=== PATIENT | male | born 1980 | race Caucasian/White ===

== ENCOUNTER 2018-09-23 21:18 | Inpatient (IN) | payer OTHER ==
[2018-09-23] MEDS ORDERED: Sodium Chloride 0.9% 1,000 ML IV ONE ×2 (22:07→22:56)
--- NOTE | 2018-09-23 22:15 | C.PDOC ---
History Of Present Illness 38 year old male presents to ED with complaint dry mouth for the past couple of months and abdominal pain with associated nausea and vomiting for the past 3 days. He states that he was started on Risperdal by his psychiatrist a couple of months ago and since then has been experiencing dry mouth. He states that he has been drinking a lot of fluids. Mother states that he has lost weight as well. He denies fever, constipation, diarrhea, hematuria, dysuria, or urinary frequency. Time Seen by Provider: 09/23/18 21:59 Chief Complaint (Nursing): Abdominal Pain History Per: Patient, Family (mother) History/Exam Limitations: no limitations Onset/Duration Of Symptoms: Days (3) Current Symptoms Are (Timing): Still Present Context: Other (new medication) Location Of Pain/Discomfort: LLQ Radiation Of Pain To:: None Quality Of Discomfort: "Pain" Associated Symptoms: Nausea, Vomiting. denies: Fever, Chills, Diarrhea, Constipation, Urinary Symptoms Exacerbating Factors: None Alleviating Factors: None Recent travel outside of the [place]: No Additional History Per: Family Past Medical History Reviewed: Historical Data, Nursing Documentation, Vital Signs Vital Signs: Last Vital Signs Temp 98.7 F 09/23/18 21:25 Pulse 108 H 09/23/18 21:25 Resp 16 09/23/18 21:25 BP 147/83 09/23/18 21:25 Pulse Ox 98 09/23/18 21:25 Primary Care Provider: Non [facility] Provider, - Medical History PMH: Anxiety, Bipolar Disorder Surgical History: Tonsillectomy (childhood age) Family History: States: Unknown Family Hx - Social History Hx Tobacco Use: Yes Hx Alcohol Use: No Hx Substance Use: No - Immunization History Hx Tetanus Toxoid Vaccination: No Hx Influenza Vaccination: No Hx Pneumococcal Vaccination: No Review Of Systems Constitutional: Positive for: Weight loss. Negative for: Fever, Chills, Weakness ENT: Positive for: Other (dry mouth). Negative for: Throat Pain Cardiovascular: Negative for: Chest Pain Respiratory: Negative for: Cough, Shortness of Breath Gastrointestinal: Positive for: Nausea, Vomiting, Abdominal Pain. Negative for: Diarrhea, Constipation Genitourinary: Negative for: Dysuria, Frequency, Hematuria Musculoskeletal: Negative for: Back Pain Neurological: Negative for: Weakness, Numbness Physical Exam - Physical Exam Appears: Non-toxic, No Acute Distress Skin: Normal Color, Warm, Dry Head: Atraumatic, Normacephalic Neck: Normal ROM, Supple Chest: Symmetrical, No Deformity Cardiovascular: Rhythm Regular, No Murmur Respiratory: No Rales, No Rhonchi, No Wheezing Gastrointestinal/Abdominal: Bowel Sounds (normoactive), Soft, Tenderness (to the left lower quadrant), No Mass, No Guarding, No Rebound, No Other (rigidity) Extremity: Capillary Refill <2 Sec Extremity: Bilateral: Atraumatic, Normal Color And Temperature, Normal ROM Pulses: Left Dorsalis Pedis: Normal, Right Dorsalis Pedis: Normal Neurological/Psych: Oriented x3, Normal Speech, Normal Cognition ED Course And Treatment - Laboratory Results Result Diagrams: 09/23/18 22:24 09/23/18 22:24 Lab Interpretation: Abnormal (Glucose 616, Na 127, K+ 5.5, HCO3 12, UA + ketones) O2 Sat by Pulse Oximetry: 98 (in RA) Pulse Ox Interpretation: Normal Progress Note: Patient treated with IV fluids and IV Insulin - Physician Consult Information Time Consulting Physician Contacted: 23:13 Physician Contacted: Lary Singh Outcome Of Conversation: Patient to be admitted for treatment of new onset diabetes. Medical Decision Making Medical Decision Making: Impression: 38 year old male presents to ED with complaint dry mouth and abdominal pain with associated nausea and vomiting for the past 3 days. Initial Plan: CMP Lipase CBC UA IV fluids Zofran Disposition - Disposition Disposition: HOSPITALIZED Disposition Time: 23:14 Condition: FAIR - POA Present On Arrival: Poor Glycemic Control - Clinical Impression Clinical Impression: Diabetes mellitus, new onset - Scribe Statement The provider has reviewed the documentation as recorded by the Scribe (Tabatha Heck) All medical record entries made by the Scribe were at my direction and personally dictated by me. I have reviewed the chart and agree that the record accurately reflects my personal performance of the history, physical exam, medical decision making, and the department course for this patient. I have also personally directed, reviewed, and agree with the discharge instructions and disposition.
[2018-09-23 22:27] LABS: BASO % 0.5 % (0.0-2.0); EOS # 0.1 K/uL (0.0-0.7); HEMOGLOBIN 17.5 g/dL (12.0-18.0); LYMPH % 31.8 % (20.0-40.0); MEAN CELL VOLUME 89.5 fL (80.0-94.0); MEAN CORPUSCULAR HEMOGLOBIN 31.4 pg (27.0-31.0); MEAN CORPUSCULAR HGB CONC 35.1 g/dL (33.0-37.0); MEAN PLATELET VOLUME 9.6 fL (7.2-11.7); MONO # 0.7 K/uL (0.0-0.8); MONO % 7.2 % (0.0-10.0); NEUT # 5.6 K/uL (1.8-7.0); NEUT % 59.5 % (50.0-75.0); NRBC % 0.1 % (0.0-2.0); RBC 5.57 Mil/uL (4.40-5.90); RED CELL DISTRIBUTION WIDTH 13.2 % (11.5-14.5); WHITE BLOOD COUNT 9.4 K/uL (4.8-10.8)
[2018-09-23 22:46] LABS: ALB/GLOB RATIO 1.2 (1.0-2.1); ALBUMIN 4.8 g/dL (3.5-5.0); ALT/SGPT 21 U/L (21-72); AST/SGOT 26 U/L (17-59); BLOOD UREA NITROGEN 15 mg/dL (9-20); CALCIUM 9.7 mg/dl (8.6-10.4); GFR NON-AFRICAN AMERICAN > 60; LIPASE 173 U/L (23-300)
[2018-09-23] MEDS ORDERED: (Novolin R) Insulin Human Regular 100 units/ml vial IVP STA (22:57)
[2018-09-23 22:59] LABS: URINE BILIRUBIN NEGATIVE (NEGATIVE); URINE CLARITY Clear (Clear); URINE COLOR Straw (YELLOW); URINE GLUCOSE (UA) 3+ mg/dL (Normal); URINE LEUKOCYTE ESTERASE NEG Leu/uL (Negative); URINE PROTEIN NEGATIVE (NEGATIVE); URINE UROBILINOGEN NORMAL mg/dL (0.2-1.0)
[2018-09-23 23:07] LABS: URINE BLOOD TRACE (NEGATIVE)
[2018-09-23] MEDS ORDERED: (Novolin R) Insulin Human Regular 100 units/ml vial ONE (23:29)
[2018-09-23] MEDS ORDERED: Sodium Chloride 0.9% 1,000 ML ONE (23:29)
[2018-09-24] MEDS ORDERED: Sodium Chloride 0.9% 1,000 ML IV SCH (01:00)
[2018-09-24 01:23] VITALS: RESP 20
[2018-09-24] MEDS ORDERED: Dextrose 50% SYRINGE Inj (50 ml) IV PRN ×2 (07:03→09:34)
[2018-09-24] MEDS ORDERED: Glucagon Recombinant 1 mg Inj IM PRN ×2 (07:03→09:42)
--- NOTE | 2018-09-24 07:06 | CP.PCM.PN ---
Subjective - Date & Time of Evaluation Date of Evaluation: 09/24/18 Time of Evaluation: 08:00 - Subjective Subjective: 38 year old with past medical history of bipolar disorder presented to the emergency room for dry mouth, nausea, vomiting, abdominal pain and weight loss. Patient also states he has been drinking more fluids. He states at first he th ought his dry mouth was secondary to his Risperidone and he had a scheduled appointment with his psychiatrist this week. Currently patient states he feels well and he ate breakfast. Patient denies chest pain, shortness of breath, nausea, vomiting, headache, diarrhea or constipation. Past Medical History: Bipolar Disorder Past Surgical History: tonsillectomy Medications: Risperidone 4mg po daily; Klonopin 1mg po daily Allergies: NKDA Social History: Smokes 2 ppd; denies alcohol; denies illicit drugs; currently unemployed; lives with mother Objective - Vital Signs/Intake and Output Vital Signs (last 24 hours): Temp Pulse Resp BP Pulse Ox 98.1 F 78 20 121/73 98 09/24/18 01:21 09/24/18 01:21 09/24/18 01:27 09/24/18 01:21 09/24/18 01:21 - Medications Medications: Current Medications Dextrose (Dextrose 50% Inj) 0 ml IV STAT PRN; Protocol PRN Reason: Hypoglycemia Protocol Dextrose (Glutose 15) 0 gm PO ONCE PRN; Protocol PRN Reason: Hypoglycemia Protocol Enoxaparin Sodium (Lovenox) 40 mg SC DAILY [facility] Glucagon (Glucagen Diagnostic Kit) 0 mg IM STAT PRN; Protocol PRN Reason: Hypoglycemia Protocol Sodium Chloride (Sodium Chloride 0.9%) 1,000 mls @ 75 mls/hr IV .[id number] [facility] Last Admin: 09/24/18 01:54 Dose: 75 mls/hr Dextrose (Dextrose 5% In Water 1000 Ml) 1,000 mls @ 0 mls/hr IV .Q0M PRN; Protocol PRN Reason: Hypoglycemia Protocol Insulin Aspart (Novolog) 0 unit SC ACHS [facility]; Protocol Insulin Glargine (Lantus) 20 unit SC HS [facility] Pantoprazole Sodium (Protonix Ec Tab) 40 mg PO DAILY [facility] Pneumococcal Polyvalent Vaccine (Pneumovax 23 Vaccine) 0.5 ml IM .ONCE ONE Stop: 09/26/18 10:01 - Labs Labs: 09/23/18 22:24 09/23/18 22:24 - Constitutional Appears: No Acute Distress - Head Exam Head Exam: ATRAUMATIC, NORMAL INSPECTION - Eye Exam Eye Exam: EOMI, Normal appearance - ENT Exam ENT Exam: Mucous Membranes Moist - Respiratory Exam Respiratory Exam: Clear to Ausculation Bilateral, NORMAL BREATHING PATTERN - Cardiovascular Exam Cardiovascular Exam: REGULAR RHYTHM, +S1, +S2 - GI/Abdominal Exam GI & Abdominal Exam: Soft, Normal Bowel Sounds. absent: Tenderness - Extremities Exam Extremities Exam: Normal Inspection - Neurological Exam Neurological Exam: Alert, Awake, Oriented x3 - Psychiatric Exam Psychiatric exam: Normal Affect - Skin Skin Exam: Normal Color Assessment and Plan - Assessment and Plan (Free Text) Assessment: Diabetic Keto Acidosis/New Onset Diabetes Patient transferred to ICU - On admission: Anion gap 23; Ketonuria; Glucose of 616 - 09/24/18 -> ABG pH 7.25; bicarb 12.6; Lactate 0.8 - hA1c 12.1 - Beta-hydroxybutyrate 4.96 - TSH 0.59; free T4 0.97 - Lipase 154; Amylase 74 - Lipid Panel: Total Cholesterol 254; LDL 75; HDL 29; Triglycerides 827 - Medications: * Patient given 1L bolous NS * 8units of Regular Insulin given * Insulin drip started - Accuchecks q1h - Diabetic Education - f/u chest xray and EKG - Hypoglycemia Protocol History of Bipolar Disorder - Psych Consult: Dr. Otto --> help appreciated - Home po medications on hold - patient is currently NPO * Risperidone 4mg po daily; Klonopin 1mg po daily Dr. Fany Singh's Service Adelaida Williamson PGY-2
[2018-09-24] MEDS ORDERED: (Novolog) Insulin Aspart, Recombinant 100 u/ml 10 ml vial SC SCH (07:30)
[2018-09-24 07:54] LABS: BASO # 0.1 K/uL (0.0-0.2); BASO % 1.2 % (0.0-2.0); EOS # 0.2 K/uL (0.0-0.7); EOS % 1.5 % (0.0-4.0); HEMOGLOBIN 15.9 g/dL (12.0-18.0); LYMPH # 4.3 K/uL (1.0-4.3); LYMPH % 39.4 % (20.0-40.0); MEAN CELL VOLUME 89.3 fL (80.0-94.0); MEAN CORPUSCULAR HEMOGLOBIN 31.4 pg (27.0-31.0); MEAN CORPUSCULAR HGB CONC 35.2 g/dL (33.0-37.0); MEAN PLATELET VOLUME 9.7 fL (7.2-11.7); MONO # 0.7 K/uL (0.0-0.8); MONO % 6.4 % (0.0-10.0); NEUT # 5.6 K/uL (1.8-7.0); NEUT % 51.5 % (50.0-75.0); RBC 5.06 Mil/uL (4.40-5.90); RED CELL DISTRIBUTION WIDTH 13.1 % (11.5-14.5); WHITE BLOOD COUNT 10.9 K/uL (4.8-10.8)
[2018-09-24 09:00] LABS: ALB/GLOB RATIO 1.6 (1.0-2.1); ALBUMIN 4.2 g/dL (3.5-5.0); ALT/SGPT 15 U/L (21-72); AST/SGOT 15 U/L (17-59); BLOOD UREA NITROGEN 10 mg/dL (9-20); CALCIUM 8.2 mg/dl (8.6-10.4); GFR NON-AFRICAN AMERICAN > 60
[2018-09-24] MEDS ORDERED: (Novolin R) Insulin Human Regular 100 units/ml vial IVP STA (09:40)
[2018-09-24] MEDS ORDERED: Sodium Chloride 0.9% 1,000 ML IV ONE ×2 (09:45→10:00)
[2018-09-24] MEDS ORDERED: Pantoprazole 40 mg EC Tab PO SCH (10:00)
--- NOTE | 2018-09-24 10:00 | CP.PCM.CON ---
<Jen Vee - Last Filed: 09/24/18 15:31> History of Present Illness - History of Present Illness History of Present Illness: ICU CONSULT NOTE FOR DR. FRANCISCO VEE PGY1 38 y/o M with PMH of bipolar d/o presented to ED with complaints of dry mouth, polyuria, crampy LLQ abdominal pain that started about 3 days ago. He reports he started taking risperidone about 3 months ago when he started noticing dry mouth. He also report he has been urinating more than usual and reports feeling "weird." He reports never checking his sugar before and denies any history of diabetes. He reports he eats what he likes, and ate pancakes w/syrup this am. He denies fevers, chills, headache, dizziness, chest pain, palpitations, shortness nausea, vomiting, constipation, diarrhea, dysuria. PMH: Bipolar d/o x 20yrs All: Denies PSH: tonsillectomy @ 4y/o SH: smokes 2ppd x 10yrs. Denies ETOH, illicit drug use. FH: maternal grandmother: IDDM. Otherwise non-contributory Meds: risperidone, klonoprin x 20yrs PMD: Dr. Gibson Psych: Dr. Segura ([facility] [place]) Review of Systems - Review of Systems Review of Systems: per HPI Past Patient History - Past Medical History & Family History Past Medical History?: Yes - Past Social History Smoking Status: Heavy Smoker > 10 Cigarettes Daily - CARDIAC Hx Cardiac Disorders: No - PULMONARY Hx Respiratory Disorders: No - NEUROLOGICAL Hx Neurological Disorder: No - HEENT Hx HEENT Problems: No - RENAL Hx Chronic Kidney Disease: No - ENDOCRINE/METABOLIC Hx Endocrine Disorders: No - HEMATOLOGICAL/ONCOLOGICAL Hx Blood Disorders: No - INTEGUMENTARY Hx Dermatological Problems: No - MUSCULOSKELETAL/RHEUMATOLOGICAL Hx Musculoskeletal Disorders: No Hx Falls: No - GASTROINTESTINAL Hx Gastrointestinal Disorders: No - GENITOURINARY/GYNECOLOGICAL Hx Genitourinary Disorders: No - PSYCHIATRIC Hx Psychophysiologic Disorder: Yes Hx Anxiety: Yes Hx Bipolar Disorder: Yes Hx Substance Use: No - SURGICAL HISTORY Hx Surgeries: No Hx Tonsillectomy: Yes (childhood age) - ANESTHESIA Hx Anesthesia: Yes Hx Anesthesia Reactions: No Meds Allergies/Adverse Reactions: Allergies Allergy/AdvReac Type Severity Reaction Status Date / Time No Known Allergies Allergy Verified 09/23/18 21:31 - Medications Medications: Current Medications Dextrose (Dextrose 50% Inj) 0 ml IV STAT PRN; Protocol PRN Reason: Hypoglycemia Protocol Dextrose (Glutose 15) 0 gm PO ONCE PRN; Protocol PRN Reason: Hypoglycemia Protocol Dextrose (Dextrose 50% Inj) 0 ml IV STAT PRN; Protocol PRN Reason: Hypoglycemia Protocol Dextrose (Glutose 15) 0 gm PO ONCE PRN; Protocol PRN Reason: Hypoglycemia Protocol Enoxaparin Sodium (Lovenox) 40 mg SC DAILY [place] Glucagon (Glucagen Diagnostic Kit) 0 mg IM STAT PRN; Protocol PRN Reason: Hypoglycemia Protocol Glucagon (Glucagen Diagnostic Kit) 0 mg IM STAT PRN; Protocol PRN Reason: Hypoglycemia Protocol Dextrose (Dextrose 5% In Water 1000 Ml) 1,000 mls @ 0 mls/hr IV .Q0M PRN; Protocol PRN Reason: Hypoglycemia Protocol Sodium Chloride (Sodium Chloride 0.9%) 1,000 mls @ 1,000 mls/hr IV .Q1H ONE Stop: 09/24/18 10:44 Dextrose (Dextrose 5% In Water 1000 Ml) 1,000 mls @ 0 mls/hr IV .Q0M PRN; Protocol PRN Reason: Hypoglycemia Protocol Insulin Human Regular 100 unit (/ Sodium Chloride) 100 mls @ 8 mls/hr IV .[id number] [place] Sodium Chloride (Sodium Chloride 0.9%) 1,000 mls @ 1,000 mls/hr IV .Q1H ONE Stop: 09/24/18 10:54 Pneumococcal Polyvalent Vaccine (Pneumovax 23 Vaccine) 0.5 ml IM .ONCE ONE Stop: 09/26/18 10:01 Physical Exam - Constitutional Appears: Well, Non-toxic, No Acute Distress - Head Exam Head Exam: ATRAUMATIC, NORMAL INSPECTION - Eye Exam Eye Exam: EOMI, Normal appearance - ENT Exam ENT Exam: Mucous Membranes Moist, Normal Exam - Neck Exam Neck exam: Positive for: Normal Inspection - Respiratory Exam Respiratory Exam: Clear to Auscultation Bilateral, NORMAL BREATHING PATTERN - Cardiovascular Exam Cardiovascular Exam: REGULAR RHYTHM, +S1, +S2 - GI/Abdominal Exam GI & Abdominal Exam: Soft. absent: Tenderness - Extremities Exam Extremities exam: Positive for: normal inspection. Negative for: calf tenderness - Back Exam Back exam: NORMAL INSPECTION - Neurological Exam Neurological exam: Alert, Oriented x3 - Psychiatric Exam Psychiatric exam: Normal Affect, Normal Mood - Skin Skin Exam: Dry, Intact, Warm Results - Vital Signs Recent Vital Signs: Last Vital Signs Temp 98.1 F 09/24/18 07:31 Pulse 82 09/24/18 07:31 Resp 20 09/24/18 07:31 BP 120/70 09/24/18 07:31 Pulse Ox 96 09/24/18 07:31 - Labs Result Diagrams: 09/24/18 07:46 09/24/18 12:09 Labs: Laboratory Results - last 24 hr 09/23/18 09/23/18 09/23/18 22:24 22:24 22:51 WBC 9.4 RBC 5.57 Hgb 17.5 Hct 49.8 MCV 89.5 MCH 31.4 H MCHC 35.1 RDW 13.2 Plt Count 258 MPV 9.6 Neut % (Auto) 59.5 Lymph % (Auto) 31.8 [place] % (Auto) 7.2 Eos % (Auto) 1.0 Baso % (Auto) 0.5 Neut # (Auto) 5.6 Lymph # (Auto) 3.0 [place] # (Auto) 0.7 Eos # (Auto) 0.1 Baso # (Auto) 0.0 Sodium 127 L Potassium 5.5 H Chloride 92 L Carbon Dioxide 12 L Anion Gap 29 H BUN 15 Creatinine 1.0 Est GFR ( Amer) > 60 Est GFR (Non-Af Amer) > 60 POC Glucose (mg/dL) Random Glucose 616 H* Hemoglobin A1c Calcium 9.7 Total Bilirubin 1.2 AST 26 ALT 21 Alkaline Phosphatase 161 H Total Protein 8.7 H Albumin 4.8 Globulin 3.9 Albumin/Globulin Ratio 1.2 Lipase 173 Urine Color Straw Urine Clarity Clear Urine pH 5.0 Ur Specific [place] 1.027 Urine Protein Negative Urine Glucose (UA) 3+ H Urine Ketones 2+ H Urine Blood Trace H Urine Nitrate Negative Urine Bilirubin Negative Urine Urobilinogen Normal Ur Leukocyte Esterase Neg Urine WBC (Auto) 1 09/24/18 09/24/18 09/24/18 00:32 07:46 07:46 WBC 10.9 H RBC 5.06 Hgb 15.9 Hct 45.2 MCV 89.3 MCH 31.4 H MCHC 35.2 RDW 13.1 Plt Count 242 MPV 9.7 Neut % (Auto) 51.5 Lymph % (Auto) 39.4 [place] % (Auto) 6.4 Eos % (Auto) 1.5 Baso % (Auto) 1.2 Neut # (Auto) 5.6 Lymph # (Auto) 4.3 [place] # (Auto) 0.7 Eos # (Auto) 0.2 Baso # (Auto) 0.1 Sodium 136 Potassium 3.9 Chloride 106 Carbon Dioxide 9 L* D Anion Gap 25 H BUN 10 Creatinine 0.7 L Est GFR ( Amer) > 60 Est GFR (Non-Af Amer) > 60 POC Glucose (mg/dL) 385 H Random Glucose 302 H D Hemoglobin A1c Calcium 8.2 L Total Bilirubin 0.8 AST 15 L D ALT 15 L D Alkaline Phosphatase 110 Total Protein 6.8 Albumin 4.2 Globulin 2.6 Albumin/Globulin Ratio 1.6 Lipase Urine Color Urine Clarity Urine pH Ur Specific [place] Urine Protein Urine Glucose (UA) Urine Ketones Urine Blood Urine Nitrate Urine Bilirubin Urine Urobilinogen Ur Leukocyte Esterase Urine WBC (Auto) 09/24/18 07:46 WBC RBC Hgb Hct MCV MCH MCHC RDW Plt Count MPV Neut % (Auto) Lymph % (Auto) [place] % (Auto) Eos % (Auto) Baso % (Auto) Neut # (Auto) Lymph # (Auto) [place] # (Auto) Eos # (Auto) Baso # (Auto) Sodium Potassium Chloride Carbon Dioxide Anion Gap BUN Creatinine Est GFR ( Amer) Est GFR (Non-Af Amer) POC Glucose (mg/dL) Random Glucose Hemoglobin A1c 12.1 H Calcium Total Bilirubin AST ALT Alkaline Phosphatase Total Protein Albumin Globulin Albumin/Globulin Ratio Lipase Urine Color Urine Clarity Urine pH Ur Specific [place] Urine Protein Urine Glucose (UA) Urine Ketones Urine Blood Urine Nitrate Urine Bilirubin Urine Urobilinogen Ur Leukocyte Esterase Urine WBC (Auto) Assessment & Plan - Assessment and Plan (Free Text) Assessment: 38 y/o M with PMH bipolar d/o admitted to ICU for management of DKA Plan: Endocrine: Diabetic Ketoacidosis -new onset DM2, no history -Anion gap 21. Hgb A1c: 12.1 -Start insulin gtt -Bolus NS IVF x 5L. Begin 1/2NS once AG closes, BG<200 -BMP,Mg, Phos Q4h. Monitor anion gap -Accuchecks Q1h -NPO -Monitor in ICU -f/u b-hydroxybutyrate, TSH, FT4, lipid panel -endocrinology consult Neuro: -A&O x 3, GCS 15 CV: -hemodynamically stable. -maintain MAP>65 Pulm: -Lungs CTA -Will reassess lung exam, given increased IVF intake GI: -lipase 154 -Keep NPO -continue tx with aggressive IVF hydration -serial abdominal exams /Renal -aggressive IVF hydration -monitor BMPs q4 Psych Bipolar d/o -holding psych meds -will consult psych for med rec DVT/GI PPX: lovenox/pepcid Case reviewed with attending physician, Dr. Francisco Vee PGY1 <Cleo Singh M - Last Filed: 09/24/18 17:53> Meds - Medications Medications: Current Medications Dextrose (Dextrose 50% Inj) 0 ml IV STAT PRN; Protocol PRN Reason: Hypoglycemia Protocol Dextrose (Glutose 15) 0 gm PO ONCE PRN; Protocol PRN Reason: Hypoglycemia Protocol Enoxaparin Sodium (Lovenox) 40 mg SC DAILY [facility] Last Admin: 09/24/18 10:15 Dose: 40 mg Famotidine (Pepcid) 20 mg IVP DAILY [facility] Last Admin: 09/24/18 12:55 Dose: 20 mg Glucagon (Glucagen Diagnostic Kit) 0 mg IM STAT PRN; Protocol PRN Reason: Hypoglycemia Protocol Dextrose (Dextrose 5% In Water 1000 Ml) 1,000 mls @ 0 mls/hr IV .Q0M PRN; Protocol PRN Reason: Hypoglycemia Protocol Potassium Phosphate 15 mmole/ (Sodium Chloride) 255 mls @ 63 mls/hr IV ONCE ONE Stop: 09/24/18 18:02 Last Admin: 09/24/18 14:10 Dose: 63 mls/hr Sodium Chloride (Sodium Chloride 0.45%) 1,000 mls @ 150 mls/hr IV .Q6H40M [facility] Last Admin: 09/24/18 16:25 Dose: 150 mls/hr Potassium Chloride (Potassium Chloride 10 Meq/100 Ml) 10 meq in 100 mls @ 100 mls/hr IVPB Q1H [place] Stop: 09/24/18 20:14 Last Admin: 09/24/18 16:31 Dose: 100 mls/hr Potassium Phosphate 15 mmole/ (Dextrose) 255 mls @ 42.5 mls/hr IVPB ONCE ONE Stop: 09/24/18 22:01 Last Admin: 09/24/18 16:46 Dose: Not Given Potassium Phosphate 15 mmole/ (Dextrose) 255 mls @ 42.5 mls/hr IVPB ONCE ONE Stop: 09/25/18 03:59 Insulin Aspart (Novolog) 4 unit SC AC [place] Insulin Glargine (Lantus) 13 unit SC HS [place] Pneumococcal Polyvalent Vaccine (Pneumovax 23 Vaccine) 0.5 ml IM .ONCE ONE Stop: 09/26/18 10:01 Results - Vital Signs Recent Vital Signs: Last Vital Signs Temp 98 F 09/24/18 12:00 Pulse 82 09/24/18 10:21 Resp 20 09/24/18 10:21 BP 137/85 09/24/18 10:21 Pulse Ox 97 09/24/18 10:21 - Labs Result Diagrams: 09/24/18 07:46 09/24/18 16:51 Labs: Laboratory Results - last 24 hr 09/23/18 09/23/18 09/23/18 22:24 22:24 22:51 WBC 9.4 RBC 5.57 Hgb 17.5 Hct 49.8 MCV 89.5 MCH 31.4 H MCHC 35.1 RDW 13.2 Plt Count 258 MPV 9.6 Neut % (Auto) 59.5 Lymph % (Auto) 31.8 [place] % (Auto) 7.2 Eos % (Auto) 1.0 Baso % (Auto) 0.5 Neut # (Auto) 5.6 Lymph # (Auto) 3.0 [place] # (Auto) 0.7 Eos # (Auto) 0.1 Baso # (Auto) 0.0 Puncture Site pCO2 pO2 HCO3 ABG pH ABG Total CO2 ABG O2 Saturation ABG Base Excess Shawn Test ABG Potassium A-a O2 Difference Respiratory Index Glucose Lactate FiO2 Sodium 127 L Potassium 5.5 H Chloride 92 L Carbon Dioxide 12 L Anion Gap 29 H BUN 15 Creatinine 1.0 Est GFR ( Amer) > 60 Est GFR (Non-Af Amer) > 60 POC Glucose (mg/dL) Random Glucose 616 H* Hemoglobin A1c Calcium 9.7 Phosphorus Magnesium Total Bilirubin 1.2 AST 26 ALT 21 Alkaline Phosphatase 161 H Total Protein 8.7 H Albumin 4.8 Globulin 3.9 Albumin/Globulin Ratio 1.2 Triglycerides Cholesterol LDL Cholesterol Direct HDL Cholesterol Amylase Lipase 173 Free T4 TSH 3rd Generation Arterial Blood Potassium Urine Color Straw Urine Clarity Clear Urine pH 5.0 Ur Specific [place] 1.027 Urine Protein Negative Urine Glucose (UA) 3+ H Urine Ketones 2+ H Urine Blood Trace H Urine Nitrate Negative Urine Bilirubin Negative Urine Urobilinogen Normal Ur Leukocyte Esterase Neg Urine WBC (Auto) 1 B-Hydroxybutyrate 09/24/18 09/24/18 09/24/18 00:32 07:17 07:46 WBC 10.9 H RBC 5.06 Hgb 15.9 Hct 45.2 MCV 89.3 MCH 31.4 H MCHC 35.2 RDW 13.1 Plt Count 242 MPV 9.7 Neut % (Auto) 51.5 Lymph % (Auto) 39.4 [place] % (Auto) 6.4 Eos % (Auto) 1.5 Baso % (Auto) 1.2 Neut # (Auto) 5.6 Lymph # (Auto) 4.3 [place] # (Auto) 0.7 Eos # (Auto) 0.2 Baso # (Auto) 0.1 Puncture Site pCO2 pO2 HCO3 ABG pH ABG Total CO2 ABG O2 Saturation ABG Base Excess Shawn Test ABG Potassium A-a O2 Difference Respiratory Index Glucose Lactate FiO2 Sodium Potassium Chloride Carbon Dioxide Anion Gap BUN Creatinine Est GFR ( Amer) Est GFR (Non-Af Amer) POC Glucose (mg/dL) 385 H 294 H Random Glucose Hemoglobin A1c Calcium Phosphorus Magnesium Total Bilirubin AST ALT Alkaline Phosphatase Total Protein Albumin Globulin Albumin/Globulin Ratio Triglycerides Cholesterol LDL Cholesterol Direct HDL Cholesterol Amylase Lipase Free T4 TSH 3rd Generation Arterial Blood Potassium Urine Color Urine Clarity Urine pH Ur Specific [place] Urine Protein Urine Glucose (UA) Urine Ketones Urine Blood Urine Nitrate Urine Bilirubin Urine Urobilinogen Ur Leukocyte Esterase Urine WBC (Auto) B-Hydroxybutyrate 09/24/18 09/24/18 09/24/18 07:46 07:46 10:20 WBC RBC Hgb Hct MCV MCH MCHC RDW Plt Count MPV Neut % (Auto) Lymph % (Auto) [place] % (Auto) Eos % (Auto) Baso % (Auto) Neut # (Auto) Lymph # (Auto) [place] # (Auto) Eos # (Auto) Baso # (Auto) Puncture Site Rra pCO2 21 L pO2 136 H HCO3 12.6 L ABG pH 7.25 L ABG Total CO2 9.8 L ABG O2 Saturation 99.1 H ABG Base Excess -15.9 L Shawn Test Pos ABG Potassium 2.9 L A-a O2 Difference -13.0 Respiratory Index -0.1 Glucose 366 H Lactate 0.8 FiO2 21.0 Sodium 136 133.0 Potassium 3.9 Chloride 106 110.0 H Carbon Dioxide 9 L* D Anion Gap 25 H BUN 10 Creatinine 0.7 L Est GFR ( Amer) > 60 Est GFR (Non-Af Amer) > 60 POC Glucose (mg/dL) Random Glucose 302 H D Hemoglobin A1c 12.1 H Calcium 8.2 L Phosphorus Magnesium Total Bilirubin 0.8 AST 15 L D ALT 15 L D Alkaline Phosphatase 110 Total Protein 6.8 Albumin 4.2 Globulin 2.6 Albumin/Globulin Ratio 1.6 Triglycerides 827 H Cholesterol 254 H LDL Cholesterol Direct 75 HDL Cholesterol 29 L Amylase Lipase 154 Free T4 TSH 3rd Generation 0.59 Arterial Blood Potassium 2.9 L Urine Color Urine Clarity Urine pH Ur Specific [place] Urine Protein Urine Glucose (UA) Urine Ketones Urine Blood Urine Nitrate Urine Bilirubin Urine Urobilinogen Ur Leukocyte Esterase Urine WBC (Auto) B-Hydroxybutyrate 09/24/18 09/24/18 09/24/18 10:26 10:26 12:09 WBC RBC Hgb Hct MCV MCH MCHC RDW Plt Count MPV Neut % (Auto) Lymph % (Auto) [place] % (Auto) Eos % (Auto) Baso % (Auto) Neut # (Auto) Lymph # (Auto) [place] # (Auto) Eos # (Auto) Baso # (Auto) Puncture Site pCO2 pO2 HCO3 ABG pH ABG Total CO2 ABG O2 Saturation ABG Base Excess Shawn Test ABG Potassium A-a O2 Difference Respiratory Index Glucose Lactate FiO2 Sodium 135 Potassium 3.4 L Chloride 108 H Carbon Dioxide 12 L Anion Gap 18 BUN 10 Creatinine 0.6 L Est GFR ( Amer) > 60 Est GFR (Non-Af Amer) > 60 POC Glucose (mg/dL) Random Glucose 275 H Hemoglobin A1c Calcium 7.9 L Phosphorus 1.7 L Magnesium 1.8 Total Bilirubin AST ALT Alkaline Phosphatase Total Protein Albumin Globulin Albumin/Globulin Ratio Triglycerides Cholesterol LDL Cholesterol Direct HDL Cholesterol Amylase 74 Lipase Free T4 0.97 TSH 3rd Generation Arterial Blood Potassium Urine Color Urine Clarity Urine pH Ur Specific [place] Urine Protein Urine Glucose (UA) Urine Ketones Urine Blood Urine Nitrate Urine Bilirubin Urine Urobilinogen Ur Leukocyte Esterase Urine WBC (Auto) B-Hydroxybutyrate 4.96 H 09/24/18 16:51 WBC RBC Hgb Hct MCV MCH MCHC RDW Plt Count MPV Neut % (Auto) Lymph % (Auto) [place] % (Auto) Eos % (Auto) Baso % (Auto) Neut # (Auto) Lymph # (Auto) [place] # (Auto) Eos # (Auto) Baso # (Auto) Puncture Site pCO2 pO2 HCO3 ABG pH ABG Total CO2 ABG O2 Saturation ABG Base Excess Shawn Test ABG Potassium A-a O2 Difference Respiratory Index Glucose Lactate FiO2 Sodium 136 Potassium 3.4 L Chloride 111 H Carbon Dioxide 15 L Anion Gap 13 BUN 7 L Creatinine 0.7 L Est GFR ( Amer) > 60 Est GFR (Non-Af Amer) > 60 POC Glucose (mg/dL) Random Glucose 189 H D Hemoglobin A1c Calcium 7.6 L Phosphorus 2.0 L Magnesium 1.8 Total Bilirubin AST ALT Alkaline Phosphatase Total Protein Albumin Globulin Albumin/Globulin Ratio Triglycerides Cholesterol LDL Cholesterol Direct HDL Cholesterol Amylase Lipase Free T4 TSH 3rd Generation Arterial Blood Potassium Urine Color Urine Clarity Urine pH Ur Specific [place] Urine Protein Urine Glucose (UA) Urine Ketones Urine Blood Urine Nitrate Urine Bilirubin Urine Urobilinogen Ur Leukocyte Esterase Urine WBC (Auto) B-Hydroxybutyrate Assessment & Plan - Assessment and Plan (Free Text) Plan: Patient admitted to ICU for newly diagnosed diabeted with DKA -continue DKA protocl -once anion gap closes, switch to 0.3 units/kg/day, divided into long acting lantus 13 units and 4 units premeals. -obtain endocrine consult Dr. WHITTINGTON. -switch to sub Q insulin when anion gap closes. -Patient remains hemodynamically stable -check and replace electrolytes -check POC ACHS and midnight, 2 and 4AM POC check. - Date & Time Date: 09/24/18 Time: 17:51
[2018-09-24 10:06] LABS: HDL CHOLESTEROL 29 mg/dL (30-70); LIPASE 154 U/L (23-300)
[2018-09-24] MEDS: Enoxaparin 40 mg Syringe SC SCH (10:15)
[2018-09-24 10:16] LABS: LDL CHOLESTEROL 75 mg/dL (0-129)
[2018-09-24 10:24] LABS: ABG ALLEN TEST POS; ARTERIAL BLOOD GAS HCO3 12.6 mmol/L (21-28); ARTERIAL BLOOD GAS O2 SAT 99.1 % (95-98); ARTERIAL BLOOD GAS PCO2 21 mm/Hg (35-45); ARTERIAL BLOOD GAS PH 7.25 (7.35-7.45); ARTERIAL BLOOD GAS PO2 136 mm/Hg (80-100); ARTERIAL BLOOD GAS TCO2 9.8 mmol/L (22-28)
[2018-09-24] MEDS: Sodium Chloride 0.9% 1,000 ML IV SCH ×5 (10:51→14:09)
[2018-09-24] MEDS ORDERED: Insulin Human Regular 100 UNIT in Sodium Chloride 0.9% 99 ML IV SCH (11:00)
[2018-09-24] MEDS ORDERED: Insulin Human Regular 100 UNIT in Sodium Chloride 0.9% 99 ML IV PRN (11:15)
[2018-09-24 12:31] LABS: BLOOD UREA NITROGEN 10 mg/dL (9-20); CALCIUM 7.9 mg/dl (8.6-10.4); GFR NON-AFRICAN AMERICAN > 60
--- NOTE | 2018-09-24 13:06 | RAD ---
Chest x-ray single frontal view HISTORY: Diabetes. COMPARISON: 05/10/2012 Findings: No focal infiltrate or effusion. Mild venous congestion. Right hilar prominence. Small nodular density in the left suprahilar region. Tortuous aorta. Top normal heart size. Degenerative changes in the spine. Impression: No focal infiltrate or effusion. Mild venous congestion. Right hilar prominence. Small nodular density in the left suprahilar region. Tortuous aorta.
[2018-09-24] MEDS ORDERED: Potassium Phosphate 15 MMOLE in Sodium Chloride 0.9% 250 ML IV ONE (14:00)
[2018-09-24] MEDS ORDERED: (Novolog) Insulin Aspart, Recombinant 100 u/ml 10 ml vial SC ONE (14:30)
--- NOTE | 2018-09-24 15:09 | CP.PCM.HP ---
Past Patient History - Past Medical History & Family History Past Medical History?: Yes - Past Social History Smoking Status: Heavy Smoker > 10 Cigarettes Daily - CARDIAC Hx Cardiac Disorders: No - PULMONARY Hx Respiratory Disorders: No - NEUROLOGICAL Hx Neurological Disorder: No - HEENT Hx HEENT Problems: No - RENAL Hx Chronic Kidney Disease: No - ENDOCRINE/METABOLIC Hx Endocrine Disorders: No - HEMATOLOGICAL/ONCOLOGICAL Hx Blood Disorders: No - INTEGUMENTARY Hx Dermatological Problems: No - MUSCULOSKELETAL/RHEUMATOLOGICAL Hx Musculoskeletal Disorders: No Hx Falls: No - GASTROINTESTINAL Hx Gastrointestinal Disorders: No - GENITOURINARY/GYNECOLOGICAL Hx Genitourinary Disorders: No - PSYCHIATRIC Hx Psychophysiologic Disorder: Yes Hx Anxiety: Yes Hx Bipolar Disorder: Yes Hx Substance Use: No - SURGICAL HISTORY Hx Surgeries: No Hx Tonsillectomy: Yes (childhood age) - ANESTHESIA Hx Anesthesia: Yes Hx Anesthesia Reactions: No Meds Allergies/Adverse Reactions: Allergies Allergy/AdvReac Type Severity Reaction Status Date / Time No Known Allergies Allergy Verified 09/23/18 21:31 Physical Exam - Constitutional Appears: Well - Head Exam Head Exam: ATRAUMATIC, NORMAL INSPECTION, NORMOCEPHALIC - Eye Exam Eye Exam: EOMI, Normal appearance, PERRL Pupil Exam: NORMAL ACCOMODATION, PERRL - ENT Exam ENT Exam: Mucous Membranes Moist, Normal Exam - Respiratory Exam Respiratory Exam: Decreased Breath Sounds - Cardiovascular Exam Cardiovascular Exam: REGULAR RHYTHM, +S1, +S2 - GI/Abdominal Exam GI & Abdominal Exam: Diminished Bowel Sounds, Soft - Rectal Exam Rectal Exam: Deferred - Neurological Exam Neurological exam: Oriented x3 Results - Vital Signs Recent Vital Signs: Last Vital Signs Temp 98 F 09/24/18 12:00 Pulse 82 09/24/18 10:21 Resp 20 09/24/18 10:21 BP 137/85 09/24/18 10:21 Pulse Ox 97 09/24/18 10:21 - Labs Result Diagrams: 09/24/18 07:46 09/24/18 12:09 Labs: Laboratory Results - last 24 hr 09/23/18 09/23/18 09/23/18 22:24 22:24 22:51 WBC 9.4 RBC 5.57 Hgb 17.5 Hct 49.8 MCV 89.5 MCH 31.4 H MCHC 35.1 RDW 13.2 Plt Count 258 MPV 9.6 Neut % (Auto) 59.5 Lymph % (Auto) 31.8 [place] % (Auto) 7.2 Eos % (Auto) 1.0 Baso % (Auto) 0.5 Neut # (Auto) 5.6 Lymph # (Auto) 3.0 [place] # (Auto) 0.7 Eos # (Auto) 0.1 Baso # (Auto) 0.0 Puncture Site pCO2 pO2 HCO3 ABG pH ABG Total CO2 ABG O2 Saturation ABG Base Excess Shawn Test ABG Potassium A-a O2 Difference Respiratory Index Glucose Lactate FiO2 Sodium 127 L Potassium 5.5 H Chloride 92 L Carbon Dioxide 12 L Anion Gap 29 H BUN 15 Creatinine 1.0 Est GFR ( Amer) > 60 Est GFR (Non-Af Amer) > 60 POC Glucose (mg/dL) Random Glucose 616 H* Hemoglobin A1c Calcium 9.7 Phosphorus Magnesium Total Bilirubin 1.2 AST 26 ALT 21 Alkaline Phosphatase 161 H Total Protein 8.7 H Albumin 4.8 Globulin 3.9 Albumin/Globulin Ratio 1.2 Triglycerides Cholesterol LDL Cholesterol Direct HDL Cholesterol Amylase Lipase 173 Free T4 TSH 3rd Generation Arterial Blood Potassium Urine Color Straw Urine Clarity Clear Urine pH 5.0 Ur Specific [place] 1.027 Urine Protein Negative Urine Glucose (UA) 3+ H Urine Ketones 2+ H Urine Blood Trace H Urine Nitrate Negative Urine Bilirubin Negative Urine Urobilinogen Normal Ur Leukocyte Esterase Neg Urine WBC (Auto) 1 B-Hydroxybutyrate 09/24/18 09/24/18 09/24/18 00:32 07:17 07:46 WBC 10.9 H RBC 5.06 Hgb 15.9 Hct 45.2 MCV 89.3 MCH 31.4 H MCHC 35.2 RDW 13.1 Plt Count 242 MPV 9.7 Neut % (Auto) 51.5 Lymph % (Auto) 39.4 [place] % (Auto) 6.4 Eos % (Auto) 1.5 Baso % (Auto) 1.2 Neut # (Auto) 5.6 Lymph # (Auto) 4.3 [place] # (Auto) 0.7 Eos # (Auto) 0.2 Baso # (Auto) 0.1 Puncture Site pCO2 pO2 HCO3 ABG pH ABG Total CO2 ABG O2 Saturation ABG Base Excess Shawn Test ABG Potassium A-a O2 Difference Respiratory Index Glucose Lactate FiO2 Sodium Potassium Chloride Carbon Dioxide Anion Gap BUN Creatinine Est GFR ( Amer) Est GFR (Non-Af Amer) POC Glucose (mg/dL) 385 H 294 H Random Glucose Hemoglobin A1c Calcium Phosphorus Magnesium Total Bilirubin AST ALT Alkaline Phosphatase Total Protein Albumin Globulin Albumin/Globulin Ratio Triglycerides Cholesterol LDL Cholesterol Direct HDL Cholesterol Amylase Lipase Free T4 TSH 3rd Generation Arterial Blood Potassium Urine Color Urine Clarity Urine pH Ur Specific [place] Urine Protein Urine Glucose (UA) Urine Ketones Urine Blood Urine Nitrate Urine Bilirubin Urine Urobilinogen Ur Leukocyte Esterase Urine WBC (Auto) B-Hydroxybutyrate 09/24/18 09/24/18 09/24/18 07:46 07:46 10:20 WBC RBC Hgb Hct MCV MCH MCHC RDW Plt Count MPV Neut % (Auto) Lymph % (Auto) [place] % (Auto) Eos % (Auto) Baso % (Auto) Neut # (Auto) Lymph # (Auto) [place] # (Auto) Eos # (Auto) Baso # (Auto) Puncture Site Rra pCO2 21 L pO2 136 H HCO3 12.6 L ABG pH 7.25 L ABG Total CO2 9.8 L ABG O2 Saturation 99.1 H ABG Base Excess -15.9 L Shawn Test Pos ABG Potassium 2.9 L A-a O2 Difference -13.0 Respiratory Index -0.1 Glucose 366 H Lactate 0.8 FiO2 21.0 Sodium 136 133.0 Potassium 3.9 Chloride 106 110.0 H Carbon Dioxide 9 L* D Anion Gap 25 H BUN 10 Creatinine 0.7 L Est GFR ( Amer) > 60 Est GFR (Non-Af Amer) > 60 POC Glucose (mg/dL) Random Glucose 302 H D Hemoglobin A1c 12.1 H Calcium 8.2 L Phosphorus Magnesium Total Bilirubin 0.8 AST 15 L D ALT 15 L D Alkaline Phosphatase 110 Total Protein 6.8 Albumin 4.2 Globulin 2.6 Albumin/Globulin Ratio 1.6 Triglycerides 827 H Cholesterol 254 H LDL Cholesterol Direct 75 HDL Cholesterol 29 L Amylase Lipase 154 Free T4 TSH 3rd Generation 0.59 Arterial Blood Potassium 2.9 L Urine Color Urine Clarity Urine pH Ur Specific [place] Urine Protein Urine Glucose (UA) Urine Ketones Urine Blood Urine Nitrate Urine Bilirubin Urine Urobilinogen Ur Leukocyte Esterase Urine WBC (Auto) B-Hydroxybutyrate 09/24/18 09/24/18 09/24/18 10:26 10:26 12:09 WBC RBC Hgb Hct MCV MCH MCHC RDW Plt Count MPV Neut % (Auto) Lymph % (Auto) [place] % (Auto) Eos % (Auto) Baso % (Auto) Neut # (Auto) Lymph # (Auto) [place] # (Auto) Eos # (Auto) Baso # (Auto) Puncture Site pCO2 pO2 HCO3 ABG pH ABG Total CO2 ABG O2 Saturation ABG Base Excess Shawn Test ABG Potassium A-a O2 Difference Respiratory Index Glucose Lactate FiO2 Sodium 135 Potassium 3.4 L Chloride 108 H Carbon Dioxide 12 L Anion Gap 18 BUN 10 Creatinine 0.6 L Est GFR ( Amer) > 60 Est GFR (Non-Af Amer) > 60 POC Glucose (mg/dL) Random Glucose 275 H Hemoglobin A1c Calcium 7.9 L Phosphorus 1.7 L Magnesium 1.8 Total Bilirubin AST ALT Alkaline Phosphatase Total Protein Albumin Globulin Albumin/Globulin Ratio Triglycerides Cholesterol LDL Cholesterol Direct HDL Cholesterol Amylase 74 Lipase Free T4 0.97 TSH 3rd Generation Arterial Blood Potassium Urine Color Urine Clarity Urine pH Ur Specific [place] Urine Protein Urine Glucose (UA) Urine Ketones Urine Blood Urine Nitrate Urine Bilirubin Urine Urobilinogen Ur Leukocyte Esterase Urine WBC (Auto) B-Hydroxybutyrate 4.96 H
[2018-09-24] MEDS ORDERED: Potassium Phosphate 15 MMOLE in Dextrose 5% In Water 250 ML IVPB ONE ×2 (16:02→22:00)
[2018-09-24] MEDS: Sodium Chloride 0.45% 1,000 ML IV SCH ×2 (16:25→22:56)
[2018-09-24] MEDS: Magnesium Sulfate 1 gm in D5W 1 GM/100 ML BAG IVPB SCH ×2 (16:28→17:03)
[2018-09-24 17:11] LABS: BLOOD UREA NITROGEN 7 mg/dL (9-20); CALCIUM 7.6 mg/dl (8.6-10.4); GFR NON-AFRICAN AMERICAN > 60
[2018-09-24] MEDS: (Novolog) Insulin Aspart, Recombinant 100 u/ml 10 ml vial SC SCH (18:00)
[2018-09-24 20:13] LABS: BLOOD UREA NITROGEN 9 mg/dL (9-20); CALCIUM 7.6 mg/dl (8.6-10.4); GFR NON-AFRICAN AMERICAN > 60
[2018-09-24] MEDS ORDERED: (Lantus) Insulin Glargine, Recombinant SC SCH ×2 (22:00)
[2018-09-25 01:12] LABS: LDL CHOLESTEROL 67 mg/dL (0-129)
[2018-09-25] MEDS: Sodium Chloride 0.45% 1,000 ML IV SCH ×3 (01:17→06:45)
[2018-09-25 01:20] LABS: BARBITURATES, UR NEGATIVE (NEGATIVE); BENZODIAZEPINES, UR NEGATIVE (NEGATIVE); OPIATES, UR NEGATIVE (NEGATIVE); PHENCYCLIDINE, UR NEGATIVE (NEGATIVE)
[2018-09-25 01:24] LABS: ALB/GLOB RATIO 1.6 (1.0-2.1); ALBUMIN 3.4 g/dL (3.5-5.0); ALT/SGPT 19 U/L (21-72); AST/SGOT 15 U/L (17-59); BLOOD UREA NITROGEN 13 mg/dL (9-20); CALCIUM 7.6 mg/dl (8.6-10.4); GFR NON-AFRICAN AMERICAN > 60; HDL CHOLESTEROL 26 mg/dL (30-70)
--- NOTE | 2018-09-25 02:24 | CON ---
DATE: 09/24/2018 ENDOCRINOLOGY CONSULTATION LOCATION: Room 12, ICU HISTORY OF PRESENT ILLNESS: This is a 38-year-old male with chronic schizoaffective disorder, presented here with progressively worsening polyuria, nocturia, and weight loss with supervening marked hyperglycemic accelerations and evaluated to a recent onset of uncontrolled type 2 diabetes and is now being deferred for diabetic evaluation and management. PAST MEDICAL HISTORY: No known medical conditions at this time. He is not on any medications as noted. He has longstanding chronic schizoaffective disorder for over 20 years and is taking psychotropic medications as given. FAMILY HISTORY: His maternal grandmother had type 2 insulin-requiring diabetes. SOCIAL HISTORY: The patient smokes two packs a day for the last 10 years or so. Denies any other substance use. He has a supportive mother and family, otherwise. REVIEW OF SYSTEMS: Admits to generalized body weakness with progressively worsening dizziness and lightheadedness, hypersomnolence, and lethargy. Also admits to bifrontal headaches with visual blurring, worse in the last week or so prior to admission. No chest pain but admits to progressive shortness of breath, especially on exertion. His oral intake has been variable with nausea, dyspepsia, vague diffuse upper and lower abdominal pain. Also admits to marked polyuria, nocturia, polydipsia. PHYSICAL EXAMINATION: GENERAL: This is an average-build male, in no apparent distress. VITAL SIGNS: Blood pressure of 140/80, pulse of 70 beats per minute and regular, temperature 98, respirations 20. Height is 5 feet 7 inches, weight is 190 pounds. HEENT: Head, normocephalic. Eyes, anicteric with pink conjunctivae. Funduscopy, not possible at this time. Ears, nose, and throat, otherwise, normal. NECK: Supple. Thyroid gland is normal size. No carotid bruits or any cervical adenopathy. CARDIOPULMONARY: Adynamic precordium. S1, S2, rapid and regular. LUNGS: Clear to auscultation. ABDOMEN: Flat, soft with positive bowel sounds. EXTREMITIES: No peripheral edema. Pulses are +2 bilaterally. LABORATORY DATA: Initial chemistry showed a BUN of 15, sodium 127, potassium 5.5, chloride 92, carbon dioxide is 12 with repeat level of 9 and the initial glucose was 616 mg/dL, creatinine 1. His hemoglobin A1c is 12.1% which is clearly elevated and indicative of suboptimal metabolic control of his diabetic condition even prior to this admission. His triglycerides are 827 and cholesterol is 254. TSH is 0.59. ASSESSMENT: This is a 38-year-old male with uncontrolled, decompensated type 1 insulin-dependent diabetes, presenting with diabetic ketoacidosis and dehydration with pervious hyponatremia and associated metabolic symptoms as mentioned above. PLAN OF MANAGEMENT: We will continue and restart actually the vigorous IV hydration as the patient is extremely volume deficient even after receiving 5 liters of IV fluids as given at this time. He is still acidotic at this time, and clearly will need vigorous IV hydration for the next 24 to 48 hours as noted until the acidosis resolves overnight at least. We will continue the intensive insulin therapy with an insulin drip infusion and hold off the initiation of the basal and bolus insulin drug combination until the acidosis has resolved. The CO2 should at least be above 18 to 20 before we can stop the insulin drip infusion. Once the acidosis has resolved, then we can switch him to a more physiologic and higher insulin drug combination of Lantus given as 24 units at bedtime and NovoLog given at 12 units t.i.d. before meals as indicated. We will obtain serial chemistries and supplement accordingly as needed. We will initiate diabetic education to include insulin self administration and home glucose monitoring accordingly. We also initiate nutritional counseling for health care food choices with a preferential higher protein than carb ratios accordingly. We also obtain a serum C-peptide and [id number] antibody to confirm and/or indicate the presence of underlying autoimmune destruction of his pancreas if he type 1 insulin dependent diabetic. We will try to assess his pancreatic reserve at this time. This will determine his future biochemical and clinical status as to whether he is a type 2 insulin requiring versus a type 1 insulin dependent diabetic. Lyssa Perez MD
[2018-09-25 06:22] LABS: BASO # 0.1 K/uL (0.0-0.2); EOS # 0.4 K/uL (0.0-0.7); EOS % 3.8 % (0.0-4.0); HEMOGLOBIN 14.1 g/dL (12.0-18.0); LYMPH % 40.9 % (20.0-40.0); MEAN CELL VOLUME 88.4 fL (80.0-94.0); MEAN CORPUSCULAR HEMOGLOBIN 30.9 pg (27.0-31.0); MEAN CORPUSCULAR HGB CONC 34.9 g/dL (33.0-37.0); MEAN PLATELET VOLUME 9.4 fL (7.2-11.7); MONO # 0.5 K/uL (0.0-0.8); MONO % 5.4 % (0.0-10.0); NEUT # 4.7 K/uL (1.8-7.0); NEUT % 48.9 % (50.0-75.0); NRBC % 0.1 % (0.0-2.0); RBC 4.58 Mil/uL (4.40-5.90); RED CELL DISTRIBUTION WIDTH 13.3 % (11.5-14.5); WHITE BLOOD COUNT 9.7 K/uL (4.8-10.8)
[2018-09-25 06:38] LABS: BLOOD UREA NITROGEN 12 mg/dL (9-20); CALCIUM 8.1 mg/dl (8.6-10.4); GFR NON-AFRICAN AMERICAN > 60
[2018-09-25] MEDS ORDERED: Potassium & Sodium Phosphate PO ONE (08:00)
[2018-09-25] MEDS: (Novolin R) Insulin Human Regular 100 units/ml vial SC SCH ×2 (08:21→11:52)
[2018-09-25] MEDS: (Novolog) Insulin Aspart, Recombinant 100 u/ml 10 ml vial SC SCH (08:23)
[2018-09-25] MEDS ORDERED: (Lantus) Insulin Glargine, Recombinant SC SCH (09:06)
[2018-09-25] MEDS ORDERED: (Novolog) Insulin Aspart, Recombinant 100 u/ml 10 ml vial SC SCH (09:06)
[2018-09-25] MEDS: Magnesium Sulfate 1 gm in D5W 1 GM/100 ML BAG IVPB SCH ×2 (09:15→09:58)
[2018-09-25] MEDS ORDERED: Sodium Chloride 0.9% 1,000 ML IV SCH ×2 (09:15→15:30)
[2018-09-25] MEDS: Enoxaparin 40 mg Syringe SC SCH (10:05)
--- NOTE | 2018-09-25 12:08 | CP.CCUPN ---
<Jen Vee - Last Filed: 09/25/18 12:08> CCU Subjective - Physician Review Subjective (Free Text): ICU PROGRESS NOTE FOR DR. FRANCISCO Vee PGY1 Pt seen and examined at bedside. Tolerating diet, denying complaints CCU Objective - Vital Signs / Intake & Output Intake and Output (Last 8hrs): Intake & Output 09/24/18 09/25/18 09/25/18 22:59 06:59 14:59 Intake Total 4907.0 1342.5 850 Output Total 1000 2000 2150 Balance 3907.0 -657.5 -1300 Intake: IV 24 Intake, IV Amount 4283.0 1342.5 650 LAC 2 150 100 Left Antecubital 333.0 42.5 Right Antecubital 2800 1200 550 Right Forearm 100 Oral 600 200 Output: Urine 1000 2000 2150 Urine, Voided 1000 2000 2150 - Physical Exam Head: Positive for: Atraumatic, Normocephalic Pupils: Positive for: PERRL Extroacular Muscles: Positive for: EOMI Mouth: Positive for: Moist Mucous Membranes Neck: Positive for: Normal Range of Motion Respiratory/Chest: Positive for: Clear to Auscultation, Good Air Exchange Cardiovascular: Positive for: Regular Rate and Rhythm, Normal S1, S2 Abdomen: Positive for: Normal Bowel Sounds. Negative for: Tenderness Upper Extremity: Positive for: Normal Inspection Lower Extremity: Positive for: Normal Inspection Neurological: Positive for: GCS=15, CN II-XII Intact Skin: Positive for: Warm, Dry - Medications Active Medications: Active Medications Generic Name Dose Route Start Last Admin Trade Name Freq PRN Reason Stop Dose Admin Aspirin 81 mg 09/25/18 10:00 09/25/18 10:07 Ecotrin PO 81 mg DAILY GEORGINA Administration Dextrose 0 ml 09/24/18 07:03 Dextrose 50% Inj IV STAT PRN Hypoglycemia Protocol Protocol Dextrose 0 gm 09/24/18 07:03 Glutose 15 PO ONCE PRN Hypoglycemia Protocol Protocol Enoxaparin Sodium 40 mg 09/24/18 10:00 09/25/18 10:05 Lovenox SC 40 mg DAILY GEORGINA Administration Famotidine 20 mg 09/24/18 12:45 09/25/18 10:05 Pepcid IVP 20 mg DAILY GEORGINA Administration Gemfibrozil 600 mg 09/25/18 10:00 09/25/18 10:13 Lopid PO 600 mg BID GEORGINA Administration Glucagon 0 mg 09/24/18 07:03 Glucagen Diagnostic Kit IM STAT PRN Hypoglycemia Protocol Protocol Dextrose 1,000 mls @ 0 mls/hr 09/24/18 08:00 Dextrose 5% In Water 1000 Ml IV .Q0M PRN Hypoglycemia Protocol Protocol Per Protocol Sodium Chloride 1,000 mls @ 100 mls/hr 09/25/18 09:15 09/25/18 09:59 Sodium Chloride 0.9% IV 100 mls/hr .Q10H GEORGINA Administration Insulin Aspart 6 unit 09/25/18 09:06 09/25/18 11:52 Novolog SC 6 u AC GEORGINA Administration Insulin Glargine 20 unit 09/25/18 09:06 Lantus SC HS GEORGINA Insulin Human Regular 0 unit 09/25/18 07:30 09/25/18 11:52 Novolin R SC 6 u ACHS GEORGINA Administration Protocol Pneumococcal Polyvalent Vaccine 0.5 ml 09/26/18 10:00 Pneumovax 23 Vaccine IM 09/26/18 10:01 .ONCE ONE Rosuvastatin Calcium 10 mg 09/25/18 22:00 Crestor PO HS [facility] - Patient Studies Lab Studies: Lab Studies 09/25/18 09/25/18 09/25/18 Range/Units 06:06 06:06 00:41 WBC 9.7 (4.8-10.8) K/uL RBC 4.58 (4.40-5.90) Mil/uL Hgb 14.1 (12.0-18.0) g/dL Hct 40.5 (35.0-51.0) % MCV 88.4 (80.0-94.0) fL MCH 30.9 (27.0-31.0) pg MCHC 34.9 (33.0-37.0) g/dL RDW 13.3 (11.5-14.5) % Plt Count 195 (130-400) K/uL MPV 9.4 (7.2-11.7) fL Neut % (Auto) 48.9 L (50.0-75.0) % Lymph % (Auto) 40.9 H (20.0-40.0) % [place] % (Auto) 5.4 (0.0-10.0) % Eos % (Auto) 3.8 (0.0-4.0) % Baso % (Auto) 1.0 (0.0-2.0) % Neut # (Auto) 4.7 (1.8-7.0) K/uL Lymph # (Auto) 4.0 (1.0-4.3) K/uL [place] # (Auto) 0.5 (0.0-0.8) K/uL Eos # (Auto) 0.4 (0.0-0.7) K/uL Baso # (Auto) 0.1 (0.0-0.2) K/uL Sodium 131 L 130 L (132-148) mmol/L Potassium 4.0 4.0 (3.6-5.2) mmol/L Chloride 104 103 (98-107) mmol/L Carbon Dioxide 12 L 14 L (22-30) mmol/L Anion Gap 19 18 (10-20) BUN 12 13 (9-20) mg/dL Creatinine 0.6 L 0.7 L (0.8-1.5) mg/dL Est GFR ( Amer) > 60 > 60 Est GFR (Non-Af Amer) > 60 > 60 POC Glucose (mg/dL) (65-110) mg/dL Random Glucose 301 H 315 H D (75-110) mg/dL Calcium 8.1 L 7.6 L (8.6-10.4) mg/dl Phosphorus 2.1 L 2.6 (2.5-4.5) mg/dL Magnesium 1.8 (1.6-2.3) mg/dL Total Bilirubin 0.3 (0.2-1.3) mg/dL AST 15 L (17-59) U/L ALT 19 L D (21-72) U/L Alkaline Phosphatase 89 (38-126) U/L Total Protein 5.5 L (6.3-8.3) g/dL Albumin 3.4 L (3.5-5.0) g/dL Globulin 2.2 (2.2-3.9) gm/dL Albumin/Globulin Ratio 1.6 (1.0-2.1) Triglycerides 776 H (0-149) mg/dL Cholesterol 184 (0-199) mg/dL LDL Cholesterol Direct 67 (0-129) mg/dL HDL Cholesterol 26 L (30-70) mg/dL TSH 3rd Generation 0.65 (0.46-4.68) mIU/L Urine Opiates Screen (NEGATIVE) Urine Methadone Screen (NEGATIVE) Ur Barbiturates Screen (NEGATIVE) Ur Phencyclidine Scrn (NEGATIVE) Ur Amphetamines Screen (NEGATIVE) U Benzodiazepines Scrn (NEGATIVE) U Oth Cocaine Metabols (NEGATIVE) U Cannabinoids Screen (NEGATIVE) 09/25/18 09/24/18 09/24/18 Range/Units 00:41 21:52 19:59 WBC (4.8-10.8) K/uL RBC (4.40-5.90) Mil/uL Hgb (12.0-18.0) g/dL Hct (35.0-51.0) % MCV (80.0-94.0) fL MCH (27.0-31.0) pg MCHC (33.0-37.0) g/dL RDW (11.5-14.5) % Plt Count (130-400) K/uL MPV (7.2-11.7) fL Neut % (Auto) (50.0-75.0) % Lymph % (Auto) (20.0-40.0) % [place] % (Auto) (0.0-10.0) % Eos % (Auto) (0.0-4.0) % Baso % (Auto) (0.0-2.0) % Neut # (Auto) (1.8-7.0) K/uL Lymph # (Auto) (1.0-4.3) K/uL [place] # (Auto) (0.0-0.8) K/uL Eos # (Auto) (0.0-0.7) K/uL Baso # (Auto) (0.0-0.2) K/uL Sodium 132 (132-148) mmol/L Potassium 3.8 (3.6-5.2) mmol/L Chloride 107 (98-107) mmol/L Carbon Dioxide 16 L (22-30) mmol/L Anion Gap 13 (10-20) BUN 9 (9-20) mg/dL Creatinine 0.8 (0.8-1.5) mg/dL Est GFR ( Amer) > 60 Est GFR (Non-Af Amer) > 60 POC Glucose (mg/dL) 320 H (65-110) mg/dL Random Glucose 247 H D (75-110) mg/dL Calcium 7.6 L (8.6-10.4) mg/dl Phosphorus (2.5-4.5) mg/dL Magnesium (1.6-2.3) mg/dL Total Bilirubin (0.2-1.3) mg/dL AST (17-59) U/L ALT (21-72) U/L Alkaline Phosphatase (38-126) U/L Total Protein (6.3-8.3) g/dL Albumin (3.5-5.0) g/dL Globulin (2.2-3.9) gm/dL Albumin/Globulin Ratio (1.0-2.1) Triglycerides (0-149) mg/dL Cholesterol (0-199) mg/dL LDL Cholesterol Direct (0-129) mg/dL HDL Cholesterol (30-70) mg/dL TSH 3rd Generation (0.46-4.68) mIU/L Urine Opiates Screen Negative (NEGATIVE) Urine Methadone Screen Negative (NEGATIVE) Ur Barbiturates Screen Negative (NEGATIVE) Ur Phencyclidine Scrn Negative (NEGATIVE) Ur Amphetamines Screen Negative (NEGATIVE) U Benzodiazepines Scrn Negative (NEGATIVE) U Oth Cocaine Metabols Negative (NEGATIVE) U Cannabinoids Screen Negative (NEGATIVE) 09/24/18 09/24/18 09/24/18 Range/Units 17:46 17:24 16:51 WBC (4.8-10.8) K/uL RBC (4.40-5.90) Mil/uL Hgb (12.0-18.0) g/dL Hct (35.0-51.0) % MCV (80.0-94.0) fL MCH (27.0-31.0) pg MCHC (33.0-37.0) g/dL RDW (11.5-14.5) % Plt Count (130-400) K/uL MPV (7.2-11.7) fL Neut % (Auto) (50.0-75.0) % Lymph % (Auto) (20.0-40.0) % [place] % (Auto) (0.0-10.0) % Eos % (Auto) (0.0-4.0) % Baso % (Auto) (0.0-2.0) % Neut # (Auto) (1.8-7.0) K/uL Lymph # (Auto) (1.0-4.3) K/uL [place] # (Auto) (0.0-0.8) K/uL Eos # (Auto) (0.0-0.7) K/uL Baso # (Auto) (0.0-0.2) K/uL Sodium 136 (132-148) mmol/L Potassium 3.4 L (3.6-5.2) mmol/L Chloride 111 H (98-107) mmol/L Carbon Dioxide 15 L (22-30) mmol/L Anion Gap 13 (10-20) BUN 7 L (9-20) mg/dL Creatinine 0.7 L (0.8-1.5) mg/dL Est GFR ( Amer) > 60 Est GFR (Non-Af Amer) > 60 POC Glucose (mg/dL) 202 H 213 H (65-110) mg/dL Random Glucose 189 H D (75-110) mg/dL Calcium 7.6 L (8.6-10.4) mg/dl Phosphorus 2.0 L (2.5-4.5) mg/dL Magnesium 1.8 (1.6-2.3) mg/dL Total Bilirubin (0.2-1.3) mg/dL AST (17-59) U/L ALT (21-72) U/L Alkaline Phosphatase (38-126) U/L Total Protein (6.3-8.3) g/dL Albumin (3.5-5.0) g/dL Globulin (2.2-3.9) gm/dL Albumin/Globulin Ratio (1.0-2.1) Triglycerides (0-149) mg/dL Cholesterol (0-199) mg/dL LDL Cholesterol Direct (0-129) mg/dL HDL Cholesterol (30-70) mg/dL TSH 3rd Generation (0.46-4.68) mIU/L Urine Opiates Screen (NEGATIVE) Urine Methadone Screen (NEGATIVE) Ur Barbiturates Screen (NEGATIVE) Ur Phencyclidine Scrn (NEGATIVE) Ur Amphetamines Screen (NEGATIVE) U Benzodiazepines Scrn (NEGATIVE) U Oth Cocaine Metabols (NEGATIVE) U Cannabinoids Screen (NEGATIVE) 09/24/18 09/24/18 09/24/18 Range/Units 15:24 14:03 13:11 WBC (4.8-10.8) K/uL RBC (4.40-5.90) Mil/uL Hgb (12.0-18.0) g/dL Hct (35.0-51.0) % MCV (80.0-94.0) fL MCH (27.0-31.0) pg MCHC (33.0-37.0) g/dL RDW (11.5-14.5) % Plt Count (130-400) K/uL MPV (7.2-11.7) fL Neut % (Auto) (50.0-75.0) % Lymph % (Auto) (20.0-40.0) % [place] % (Auto) (0.0-10.0) % Eos % (Auto) (0.0-4.0) % Baso % (Auto) (0.0-2.0) % Neut # (Auto) (1.8-7.0) K/uL Lymph # (Auto) (1.0-4.3) K/uL [place] # (Auto) (0.0-0.8) K/uL Eos # (Auto) (0.0-0.7) K/uL Baso # (Auto) (0.0-0.2) K/uL Sodium (132-148) mmol/L Potassium (3.6-5.2) mmol/L Chloride (98-107) mmol/L Carbon Dioxide (22-30) mmol/L Anion Gap (10-20) BUN (9-20) mg/dL Creatinine (0.8-1.5) mg/dL Est GFR ( Amer) Est GFR (Non-Af Amer) POC Glucose (mg/dL) 256 H 220 H 227 H (65-110) mg/dL Random Glucose (75-110) mg/dL Calcium (8.6-10.4) mg/dl Phosphorus (2.5-4.5) mg/dL Magnesium (1.6-2.3) mg/dL Total Bilirubin (0.2-1.3) mg/dL AST (17-59) U/L ALT (21-72) U/L Alkaline Phosphatase (38-126) U/L Total Protein (6.3-8.3) g/dL Albumin (3.5-5.0) g/dL Globulin (2.2-3.9) gm/dL Albumin/Globulin Ratio (1.0-2.1) Triglycerides (0-149) mg/dL Cholesterol (0-199) mg/dL LDL Cholesterol Direct (0-129) mg/dL HDL Cholesterol (30-70) mg/dL TSH 3rd Generation (0.46-4.68) mIU/L Urine Opiates Screen (NEGATIVE) Urine Methadone Screen (NEGATIVE) Ur Barbiturates Screen (NEGATIVE) Ur Phencyclidine Scrn (NEGATIVE) Ur Amphetamines Screen (NEGATIVE) U Benzodiazepines Scrn (NEGATIVE) U Oth Cocaine Metabols (NEGATIVE) U Cannabinoids Screen (NEGATIVE) 09/24/18 09/24/18 09/24/18 Range/Units 12:09 11:55 10:57 WBC (4.8-10.8) K/uL RBC (4.40-5.90) Mil/uL Hgb (12.0-18.0) g/dL Hct (35.0-51.0) % MCV (80.0-94.0) fL MCH (27.0-31.0) pg MCHC (33.0-37.0) g/dL RDW (11.5-14.5) % Plt Count (130-400) K/uL MPV (7.2-11.7) fL Neut % (Auto) (50.0-75.0) % Lymph % (Auto) (20.0-40.0) % [place] % (Auto) (0.0-10.0) % Eos % (Auto) (0.0-4.0) % Baso % (Auto) (0.0-2.0) % Neut # (Auto) (1.8-7.0) K/uL Lymph # (Auto) (1.0-4.3) K/uL [place] # (Auto) (0.0-0.8) K/uL Eos # (Auto) (0.0-0.7) K/uL Baso # (Auto) (0.0-0.2) K/uL Sodium 135 (132-148) mmol/L Potassium 3.4 L (3.6-5.2) mmol/L Chloride 108 H (98-107) mmol/L Carbon Dioxide 12 L (22-30) mmol/L Anion Gap 18 (10-20) BUN 10 (9-20) mg/dL Creatinine 0.6 L (0.8-1.5) mg/dL Est GFR ( Amer) > 60 Est GFR (Non-Af Amer) > 60 POC Glucose (mg/dL) 294 H 308 H (65-110) mg/dL Random Glucose 275 H (75-110) mg/dL Calcium 7.9 L (8.6-10.4) mg/dl Phosphorus 1.7 L (2.5-4.5) mg/dL Magnesium 1.8 (1.6-2.3) mg/dL Total Bilirubin (0.2-1.3) mg/dL AST (17-59) U/L ALT (21-72) U/L Alkaline Phosphatase (38-126) U/L Total Protein (6.3-8.3) g/dL Albumin (3.5-5.0) g/dL Globulin (2.2-3.9) gm/dL Albumin/Globulin Ratio (1.0-2.1) Triglycerides (0-149) mg/dL Cholesterol (0-199) mg/dL LDL Cholesterol Direct (0-129) mg/dL HDL Cholesterol (30-70) mg/dL TSH 3rd Generation (0.46-4.68) mIU/L Urine Opiates Screen (NEGATIVE) Urine Methadone Screen (NEGATIVE) Ur Barbiturates Screen (NEGATIVE) Ur Phencyclidine Scrn (NEGATIVE) Ur Amphetamines Screen (NEGATIVE) U Benzodiazepines Scrn (NEGATIVE) U Oth Cocaine Metabols (NEGATIVE) U Cannabinoids Screen (NEGATIVE) Laboratory Results - last 24 hr 09/24/18 09/24/18 09/24/18 10:57 11:55 12:09 WBC RBC Hgb Hct MCV MCH MCHC RDW Plt Count MPV Neut % (Auto) Lymph % (Auto) [place] % (Auto) Eos % (Auto) Baso % (Auto) Neut # (Auto) Lymph # (Auto) [place] # (Auto) Eos # (Auto) Baso # (Auto) Sodium 135 Potassium 3.4 L Chloride 108 H Carbon Dioxide 12 L Anion Gap 18 BUN 10 Creatinine 0.6 L Est GFR ( Amer) > 60 Est GFR (Non-Af Amer) > 60 POC Glucose (mg/dL) 308 H 294 H Random Glucose 275 H Calcium 7.9 L Phosphorus 1.7 L Magnesium 1.8 Total Bilirubin AST ALT Alkaline Phosphatase Total Protein Albumin Globulin Albumin/Globulin Ratio Triglycerides Cholesterol LDL Cholesterol Direct HDL Cholesterol TSH 3rd Generation Urine Opiates Screen Urine Methadone Screen Ur Barbiturates Screen Ur Phencyclidine Scrn Ur Amphetamines Screen U Benzodiazepines Scrn U Oth Cocaine Metabols U Cannabinoids Screen 09/24/18 09/24/18 09/24/18 13:11 14:03 15:24 WBC RBC Hgb Hct MCV MCH MCHC RDW Plt Count MPV Neut % (Auto) Lymph % (Auto) [place] % (Auto) Eos % (Auto) Baso % (Auto) Neut # (Auto) Lymph # (Auto) [place] # (Auto) Eos # (Auto) Baso # (Auto) Sodium Potassium Chloride Carbon Dioxide Anion Gap BUN Creatinine Est GFR ( Amer) Est GFR (Non-Af Amer) POC Glucose (mg/dL) 227 H 220 H 256 H Random Glucose Calcium Phosphorus Magnesium Total Bilirubin AST ALT Alkaline Phosphatase Total Protein Albumin Globulin Albumin/Globulin Ratio Triglycerides Cholesterol LDL Cholesterol Direct HDL Cholesterol TSH 3rd Generation Urine Opiates Screen Urine Methadone Screen Ur Barbiturates Screen Ur Phencyclidine Scrn Ur Amphetamines Screen U Benzodiazepines Scrn U Oth Cocaine Metabols U Cannabinoids Screen 09/24/18 09/24/18 09/24/18 16:51 17:24 17:46 WBC RBC Hgb Hct MCV MCH MCHC RDW Plt Count MPV Neut % (Auto) Lymph % (Auto) [place] % (Auto) Eos % (Auto) Baso % (Auto) Neut # (Auto) Lymph # (Auto) [place] # (Auto) Eos # (Auto) Baso # (Auto) Sodium 136 Potassium 3.4 L Chloride 111 H Carbon Dioxide 15 L Anion Gap 13 BUN 7 L Creatinine 0.7 L Est GFR ( Amer) > 60 Est GFR (Non-Af Amer) > 60 POC Glucose (mg/dL) 213 H 202 H Random Glucose 189 H D Calcium 7.6 L Phosphorus 2.0 L Magnesium 1.8 Total Bilirubin AST ALT Alkaline Phosphatase Total Protein Albumin Globulin Albumin/Globulin Ratio Triglycerides Cholesterol LDL Cholesterol Direct HDL Cholesterol TSH 3rd Generation Urine Opiates Screen Urine Methadone Screen Ur Barbiturates Screen Ur Phencyclidine Scrn Ur Amphetamines Screen U Benzodiazepines Scrn U Oth Cocaine Metabols U Cannabinoids Screen 09/24/18 09/24/18 09/25/18 19:59 21:52 00:41 WBC RBC Hgb Hct MCV MCH MCHC RDW Plt Count MPV Neut % (Auto) Lymph % (Auto) [place] % (Auto) Eos % (Auto) Baso % (Auto) Neut # (Auto) Lymph # (Auto) [place] # (Auto) Eos # (Auto) Baso # (Auto) Sodium 132 Potassium 3.8 Chloride 107 Carbon Dioxide 16 L Anion Gap 13 BUN 9 Creatinine 0.8 Est GFR ( Amer) > 60 Est GFR (Non-Af Amer) > 60 POC Glucose (mg/dL) 320 H Random Glucose 247 H D Calcium 7.6 L Phosphorus Magnesium Total Bilirubin AST ALT Alkaline Phosphatase Total Protein Albumin Globulin Albumin/Globulin Ratio Triglycerides Cholesterol LDL Cholesterol Direct HDL Cholesterol TSH 3rd Generation Urine Opiates Screen Negative Urine Methadone Screen Negative Ur Barbiturates Screen Negative Ur Phencyclidine Scrn Negative Ur Amphetamines Screen Negative U Benzodiazepines Scrn Negative U Oth Cocaine Metabols Negative U Cannabinoids Screen Negative 09/25/18 09/25/18 09/25/18 00:41 06:06 06:06 WBC 9.7 RBC 4.58 Hgb 14.1 Hct 40.5 MCV 88.4 MCH 30.9 MCHC 34.9 RDW 13.3 Plt Count 195 MPV 9.4 Neut % (Auto) 48.9 L Lymph % (Auto) 40.9 H [place] % (Auto) 5.4 Eos % (Auto) 3.8 Baso % (Auto) 1.0 Neut # (Auto) 4.7 Lymph # (Auto) 4.0 [place] # (Auto) 0.5 Eos # (Auto) 0.4 Baso # (Auto) 0.1 Sodium 130 L 131 L Potassium 4.0 4.0 Chloride 103 104 Carbon Dioxide 14 L 12 L Anion Gap 18 19 BUN 13 12 Creatinine 0.7 L 0.6 L Est GFR ( Amer) > 60 > 60 Est GFR (Non-Af Amer) > 60 > 60 POC Glucose (mg/dL) Random Glucose 315 H D 301 H Calcium 7.6 L 8.1 L Phosphorus 2.6 2.1 L Magnesium 1.8 Total Bilirubin 0.3 AST 15 L ALT 19 L D Alkaline Phosphatase 89 Total Protein 5.5 L Albumin 3.4 L Globulin 2.2 Albumin/Globulin Ratio 1.6 Triglycerides 776 H Cholesterol 184 LDL Cholesterol Direct 67 HDL Cholesterol 26 L TSH 3rd Generation 0.65 Urine Opiates Screen Urine Methadone Screen Ur Barbiturates Screen Ur Phencyclidine Scrn Ur Amphetamines Screen U Benzodiazepines Scrn U Oth Cocaine Metabols U Cannabinoids Screen Radiology Impressions: Radiology Impressions Chest X-Ray 09/24/18 09:32 Impression: No focal infiltrate or effusion. Mild venous congestion. Right hilar prominence. Small nodular density in the left suprahilar region. Tortuous aorta. EKG/Cardiology Studies: Cardiology / EKG Studies 09/24/18 11:39 EKG [ELECTROCARDIOGRAM] Routine Comment: Mode Of Transportation: Reason For Exam: DKA Fingerstick Blood Sugar Results: 275 Review of Systems - Review of Systems Review of Systems: per HPI Critical Care Progress Note - Nutrition Nutrition: Nutrition Category Date Time Status Heart Healthy Diet [DIET] Diets 09/24/18 Lunch Active Assessment/Plan - Assessment and Plan (Free Text) Assessment: 38 y/o M with PMH bipolar d/o admitted to ICU for management of DKA, subsequently resolved Plan: Endocrine: Diabetic Ketoacidosis -new onset DM2, no history -Anion gap closed, Hgb A1c: 12.1 -BS have been in 200-300s -will increase insulin to 6u AC, 20uHS -endocrinology consult -diabetic/nutrition consults Hyperlipidemia -start lopid for elevated trigs -start aspirin/statin Neuro: -A&O x 3, GCS 15 CV: -hemodynamically stable. -maintain MAP>65 Pulm: -Lungs CTA -Will reassess lung exam, given increased IVF intake GI: -Abdominal pain resolved -pepcid for GI ppx /Renal -c/w IVF@100 -maintain euvolemia Psych Bipolar d/o -holding psych meds -psycho consulted for med rec DVT/GI PPX: lovenox/pepcid Dispo: Pt remains hemodynamically stable, will transfer to med/surg Case reviewed with attending physician, Dr. Francisco Vee PGY1 <Cleo Singh - Last Filed: 05/31/19 19:48> CCU Objective - Vital Signs / Intake & Output Intake and Output (Last 8hrs): Intake & Output 09/25/18 09/25/18 09/25/18 06:59 14:59 22:59 Intake Total 1342.5 1250 Output Total 1999 2850 Balance -657.5 -1600 Intake: Intake, IV Amount 1342.5 850 LAC 2 100 Left Antecubital 42.5 Right Antecubital 1200 550 Right Forearm 300 Oral 400 Output: Urine 1999 2850 Urine, Voided 1999 2850 - Patient Studies Lab Studies: Microbiology Studies 09/24/18 12:09 MRSA Culture (Admit) - Final Nose MRSA NOT DETECTED Lab Studies 09/25/18 09/25/18 09/25/18 Range/Units 06:06 06:06 00:41 WBC 9.7 (4.8-10.8) K/uL RBC 4.58 (4.40-5.90) Mil/uL Hgb 14.1 (12.0-18.0) g/dL Hct 40.5 (35.0-51.0) % MCV 88.4 (80.0-94.0) fL MCH 30.9 (27.0-31.0) pg MCHC 34.9 (33.0-37.0) g/dL RDW 13.3 (11.5-14.5) % Plt Count 195 (130-400) K/uL MPV 9.4 (7.2-11.7) fL Neut % (Auto) 48.9 L (50.0-75.0) % Lymph % (Auto) 40.9 H (20.0-40.0) % [place] % (Auto) 5.4 (0.0-10.0) % Eos % (Auto) 3.8 (0.0-4.0) % Baso % (Auto) 1.0 (0.0-2.0) % Neut # (Auto) 4.7 (1.8-7.0) K/uL Lymph # (Auto) 4.0 (1.0-4.3) K/uL [place] # (Auto) 0.5 (0.0-0.8) K/uL Eos # (Auto) 0.4 (0.0-0.7) K/uL Baso # (Auto) 0.1 (0.0-0.2) K/uL Sodium 131 L 130 L (132-148) mmol/L Potassium 4.0 4.0 (3.6-5.2) mmol/L Chloride 104 103 (98-107) mmol/L Carbon Dioxide 12 L 14 L (22-30) mmol/L Anion Gap 19 18 (10-20) BUN 12 13 (9-20) mg/dL Creatinine 0.6 L 0.7 L (0.8-1.5) mg/dL Est GFR ( Amer) > 60 > 60 Est GFR (Non-Af Amer) > 60 > 60 POC Glucose (mg/dL) (65-110) mg/dL Random Glucose 301 H 315 H D (75-110) mg/dL Calcium 8.1 L 7.6 L (8.6-10.4) mg/dl Phosphorus 2.1 L 2.6 (2.5-4.5) mg/dL Magnesium 1.8 (1.6-2.3) mg/dL Total Bilirubin 0.3 (0.2-1.3) mg/dL AST 15 L (17-59) U/L ALT 19 L D (21-72) U/L Alkaline Phosphatase 89 (38-126) U/L Total Protein 5.5 L (6.3-8.3) g/dL Albumin 3.4 L (3.5-5.0) g/dL Globulin 2.2 (2.2-3.9) gm/dL Albumin/Globulin Ratio 1.6 (1.0-2.1) Triglycerides 776 H (0-149) mg/dL Cholesterol 184 (0-199) mg/dL LDL Cholesterol Direct 67 (0-129) mg/dL HDL Cholesterol 26 L (30-70) mg/dL TSH 3rd Generation 0.65 (0.46-4.68) mIU/L Urine Opiates Screen (NEGATIVE) Urine Methadone Screen (NEGATIVE) Ur Barbiturates Screen (NEGATIVE) Ur Phencyclidine Scrn (NEGATIVE) Ur Amphetamines Screen (NEGATIVE) U Benzodiazepines Scrn (NEGATIVE) U Oth Cocaine Metabols (NEGATIVE) U Cannabinoids Screen (NEGATIVE) 09/25/18 09/24/18 09/24/18 Range/Units 00:41 21:52 19:59 WBC (4.8-10.8) K/uL RBC (4.40-5.90) Mil/uL Hgb (12.0-18.0) g/dL Hct (35.0-51.0) % MCV (80.0-94.0) fL MCH (27.0-31.0) pg MCHC (33.0-37.0) g/dL RDW (11.5-14.5) % Plt Count (130-400) K/uL MPV (7.2-11.7) fL Neut % (Auto) (50.0-75.0) % Lymph % (Auto) (20.0-40.0) % [place] % (Auto) (0.0-10.0) % Eos % (Auto) (0.0-4.0) % Baso % (Auto) (0.0-2.0) % Neut # (Auto) (1.8-7.0) K/uL Lymph # (Auto) (1.0-4.3) K/uL [place] # (Auto) (0.0-0.8) K/uL Eos # (Auto) (0.0-0.7) K/uL Baso # (Auto) (0.0-0.2) K/uL Sodium 132 (132-148) mmol/L Potassium 3.8 (3.6-5.2) mmol/L Chloride 107 (98-107) mmol/L Carbon Dioxide 16 L (22-30) mmol/L Anion Gap 13 (10-20) BUN 9 (9-20) mg/dL Creatinine 0.8 (0.8-1.5) mg/dL Est GFR ( Amer) > 60 Est GFR (Non-Af Amer) > 60 POC Glucose (mg/dL) 320 H (65-110) mg/dL Random Glucose 247 H D (75-110) mg/dL Calcium 7.6 L (8.6-10.4) mg/dl Phosphorus (2.5-4.5) mg/dL Magnesium (1.6-2.3) mg/dL Total Bilirubin (0.2-1.3) mg/dL AST (17-59) U/L ALT (21-72) U/L Alkaline Phosphatase (38-126) U/L Total Protein (6.3-8.3) g/dL Albumin (3.5-5.0) g/dL Globulin (2.2-3.9) gm/dL Albumin/Globulin Ratio (1.0-2.1) Triglycerides (0-149) mg/dL Cholesterol (0-199) mg/dL LDL Cholesterol Direct (0-129) mg/dL HDL Cholesterol (30-70) mg/dL TSH 3rd Generation (0.46-4.68) mIU/L Urine Opiates Screen Negative (NEGATIVE) Urine Methadone Screen Negative (NEGATIVE) Ur Barbiturates Screen Negative (NEGATIVE) Ur Phencyclidine Scrn Negative (NEGATIVE) Ur Amphetamines Screen Negative (NEGATIVE) U Benzodiazepines Scrn Negative (NEGATIVE) U Oth Cocaine Metabols Negative (NEGATIVE) U Cannabinoids Screen Negative (NEGATIVE) 09/24/18 09/24/18 09/24/18 Range/Units 17:46 17:24 15:24 WBC (4.8-10.8) K/uL RBC (4.40-5.90) Mil/uL Hgb (12.0-18.0) g/dL Hct (35.0-51.0) % MCV (80.0-94.0) fL MCH (27.0-31.0) pg MCHC (33.0-37.0) g/dL RDW (11.5-14.5) % Plt Count (130-400) K/uL MPV (7.2-11.7) fL Neut % (Auto) (50.0-75.0) % Lymph % (Auto) (20.0-40.0) % [place] % (Auto) (0.0-10.0) % Eos % (Auto) (0.0-4.0) % Baso % (Auto) (0.0-2.0) % Neut # (Auto) (1.8-7.0) K/uL Lymph # (Auto) (1.0-4.3) K/uL [place] # (Auto) (0.0-0.8) K/uL Eos # (Auto) (0.0-0.7) K/uL Baso # (Auto) (0.0-0.2) K/uL Sodium (132-148) mmol/L Potassium (3.6-5.2) mmol/L Chloride (98-107) mmol/L Carbon Dioxide (22-30) mmol/L Anion Gap (10-20) BUN (9-20) mg/dL Creatinine (0.8-1.5) mg/dL Est GFR ( Amer) Est GFR (Non-Af Amer) POC Glucose (mg/dL) 202 H 213 H 256 H (65-110) mg/dL Random Glucose (75-110) mg/dL Calcium (8.6-10.4) mg/dl Phosphorus (2.5-4.5) mg/dL Magnesium (1.6-2.3) mg/dL Total Bilirubin (0.2-1.3) mg/dL AST (17-59) U/L ALT (21-72) U/L Alkaline Phosphatase (38-126) U/L Total Protein (6.3-8.3) g/dL Albumin (3.5-5.0) g/dL Globulin (2.2-3.9) gm/dL Albumin/Globulin Ratio (1.0-2.1) Triglycerides (0-149) mg/dL Cholesterol (0-199) mg/dL LDL Cholesterol Direct (0-129) mg/dL HDL Cholesterol (30-70) mg/dL TSH 3rd Generation (0.46-4.68) mIU/L Urine Opiates Screen (NEGATIVE) Urine Methadone Screen (NEGATIVE) Ur Barbiturates Screen (NEGATIVE) Ur Phencyclidine Scrn (NEGATIVE) Ur Amphetamines Screen (NEGATIVE) U Benzodiazepines Scrn (NEGATIVE) U Oth Cocaine Metabols (NEGATIVE) U Cannabinoids Screen (NEGATIVE) 09/24/18 09/24/18 09/24/18 Range/Units 14:03 13:11 11:55 WBC (4.8-10.8) K/uL RBC (4.40-5.90) Mil/uL Hgb (12.0-18.0) g/dL Hct (35.0-51.0) % MCV (80.0-94.0) fL MCH (27.0-31.0) pg MCHC (33.0-37.0) g/dL RDW (11.5-14.5) % Plt Count (130-400) K/uL MPV (7.2-11.7) fL Neut % (Auto) (50.0-75.0) % Lymph % (Auto) (20.0-40.0) % [place] % (Auto) (0.0-10.0) % Eos % (Auto) (0.0-4.0) % Baso % (Auto) (0.0-2.0) % Neut # (Auto) (1.8-7.0) K/uL Lymph # (Auto) (1.0-4.3) K/uL [place] # (Auto) (0.0-0.8) K/uL Eos # (Auto) (0.0-0.7) K/uL Baso # (Auto) (0.0-0.2) K/uL Sodium (132-148) mmol/L Potassium (3.6-5.2) mmol/L Chloride (98-107) mmol/L Carbon Dioxide (22-30) mmol/L Anion Gap (10-20) BUN (9-20) mg/dL Creatinine (0.8-1.5) mg/dL Est GFR ( Amer) Est GFR (Non-Af Amer) POC Glucose (mg/dL) 220 H 227 H 294 H (65-110) mg/dL Random Glucose (75-110) mg/dL Calcium (8.6-10.4) mg/dl Phosphorus (2.5-4.5) mg/dL Magnesium (1.6-2.3) mg/dL Total Bilirubin (0.2-1.3) mg/dL AST (17-59) U/L ALT (21-72) U/L Alkaline Phosphatase (38-126) U/L Total Protein (6.3-8.3) g/dL Albumin (3.5-5.0) g/dL Globulin (2.2-3.9) gm/dL Albumin/Globulin Ratio (1.0-2.1) Triglycerides (0-149) mg/dL Cholesterol (0-199) mg/dL LDL Cholesterol Direct (0-129) mg/dL HDL Cholesterol (30-70) mg/dL TSH 3rd Generation (0.46-4.68) mIU/L Urine Opiates Screen (NEGATIVE) Urine Methadone Screen (NEGATIVE) Ur Barbiturates Screen (NEGATIVE) Ur Phencyclidine Scrn (NEGATIVE) Ur Amphetamines Screen (NEGATIVE) U Benzodiazepines Scrn (NEGATIVE) U Oth Cocaine Metabols (NEGATIVE) U Cannabinoids Screen (NEGATIVE) 09/24/18 Range/Units 10:57 WBC (4.8-10.8) K/uL RBC (4.40-5.90) Mil/uL Hgb (12.0-18.0) g/dL Hct (35.0-51.0) % MCV (80.0-94.0) fL MCH (27.0-31.0) pg MCHC (33.0-37.0) g/dL RDW (11.5-14.5) % Plt Count (130-400) K/uL MPV (7.2-11.7) fL Neut % (Auto) (50.0-75.0) % Lymph % (Auto) (20.0-40.0) % [place] % (Auto) (0.0-10.0) % Eos % (Auto) (0.0-4.0) % Baso % (Auto) (0.0-2.0) % Neut # (Auto) (1.8-7.0) K/uL Lymph # (Auto) (1.0-4.3) K/uL [place] # (Auto) (0.0-0.8) K/uL Eos # (Auto) (0.0-0.7) K/uL Baso # (Auto) (0.0-0.2) K/uL Sodium (132-148) mmol/L Potassium (3.6-5.2) mmol/L Chloride (98-107) mmol/L Carbon Dioxide (22-30) mmol/L Anion Gap (10-20) BUN (9-20) mg/dL Creatinine (0.8-1.5) mg/dL Est GFR ( Amer) Est GFR (Non-Af Amer) POC Glucose (mg/dL) 308 H (65-110) mg/dL Random Glucose (75-110) mg/dL Calcium (8.6-10.4) mg/dl Phosphorus (2.5-4.5) mg/dL Magnesium (1.6-2.3) mg/dL Total Bilirubin (0.2-1.3) mg/dL AST (17-59) U/L ALT (21-72) U/L Alkaline Phosphatase (38-126) U/L Total Protein (6.3-8.3) g/dL Albumin (3.5-5.0) g/dL Globulin (2.2-3.9) gm/dL Albumin/Globulin Ratio (1.0-2.1) Triglycerides (0-149) mg/dL Cholesterol (0-199) mg/dL LDL Cholesterol Direct (0-129) mg/dL HDL Cholesterol (30-70) mg/dL TSH 3rd Generation (0.46-4.68) mIU/L Urine Opiates Screen (NEGATIVE) Urine Methadone Screen (NEGATIVE) Ur Barbiturates Screen (NEGATIVE) Ur Phencyclidine Scrn (NEGATIVE) Ur Amphetamines Screen (NEGATIVE) U Benzodiazepines Scrn (NEGATIVE) U Oth Cocaine Metabols (NEGATIVE) U Cannabinoids Screen (NEGATIVE) Laboratory Results - last 24 hr 09/24/18 09/24/18 09/24/18 10:57 11:55 13:11 WBC RBC Hgb Hct MCV MCH MCHC RDW Plt Count MPV Neut % (Auto) Lymph % (Auto) [place] % (Auto) Eos % (Auto) Baso % (Auto) Neut # (Auto) Lymph # (Auto) [place] # (Auto) Eos # (Auto) Baso # (Auto) Sodium Potassium Chloride Carbon Dioxide Anion Gap BUN Creatinine Est GFR ( Amer) Est GFR (Non-Af Amer) POC Glucose (mg/dL) 308 H 294 H 227 H Random Glucose Calcium Phosphorus Magnesium Total Bilirubin AST ALT Alkaline Phosphatase Total Protein Albumin Globulin Albumin/Globulin Ratio Triglycerides Cholesterol LDL Cholesterol Direct HDL Cholesterol TSH 3rd Generation Urine Opiates Screen Urine Methadone Screen Ur Barbiturates Screen Ur Phencyclidine Scrn Ur Amphetamines Screen U Benzodiazepines Scrn U Oth Cocaine Metabols U Cannabinoids Screen 09/24/18 09/24/18 09/24/18 14:03 15:24 17:24 WBC RBC Hgb Hct MCV MCH MCHC RDW Plt Count MPV Neut % (Auto) Lymph % (Auto) [place] % (Auto) Eos % (Auto) Baso % (Auto) Neut # (Auto) Lymph # (Auto) [place] # (Auto) Eos # (Auto) Baso # (Auto) Sodium Potassium Chloride Carbon Dioxide Anion Gap BUN Creatinine Est GFR ( Amer) Est GFR (Non-Af Amer) POC Glucose (mg/dL) 220 H 256 H 213 H Random Glucose Calcium Phosphorus Magnesium Total Bilirubin AST ALT Alkaline Phosphatase Total Protein Albumin Globulin Albumin/Globulin Ratio Triglycerides Cholesterol LDL Cholesterol Direct HDL Cholesterol TSH 3rd Generation Urine Opiates Screen Urine Methadone Screen Ur Barbiturates Screen Ur Phencyclidine Scrn Ur Amphetamines Screen U Benzodiazepines Scrn U Oth Cocaine Metabols U Cannabinoids Screen 09/24/18 09/24/18 09/24/18 17:46 19:59 21:52 WBC RBC Hgb Hct MCV MCH MCHC RDW Plt Count MPV Neut % (Auto) Lymph % (Auto) [place] % (Auto) Eos % (Auto) Baso % (Auto) Neut # (Auto) Lymph # (Auto) [place] # (Auto) Eos # (Auto) Baso # (Auto) Sodium 132 Potassium 3.8 Chloride 107 Carbon Dioxide 16 L Anion Gap 13 BUN 9 Creatinine 0.8 Est GFR ( Amer) > 60 Est GFR (Non-Af Amer) > 60 POC Glucose (mg/dL) 202 H 320 H Random Glucose 247 H D Calcium 7.6 L Phosphorus Magnesium Total Bilirubin AST ALT Alkaline Phosphatase Total Protein Albumin Globulin Albumin/Globulin Ratio Triglycerides Cholesterol LDL Cholesterol Direct HDL Cholesterol TSH 3rd Generation Urine Opiates Screen Urine Methadone Screen Ur Barbiturates Screen Ur Phencyclidine Scrn Ur Amphetamines Screen U Benzodiazepines Scrn U Oth Cocaine Metabols U Cannabinoids Screen 09/25/18 09/25/18 09/25/18 00:41 00:41 06:06 WBC 9.7 RBC 4.58 Hgb 14.1 Hct 40.5 MCV 88.4 MCH 30.9 MCHC 34.9 RDW 13.3 Plt Count 195 MPV 9.4 Neut % (Auto) 48.9 L Lymph % (Auto) 40.9 H [place] % (Auto) 5.4 Eos % (Auto) 3.8 Baso % (Auto) 1.0 Neut # (Auto) 4.7 Lymph # (Auto) 4.0 [place] # (Auto) 0.5 Eos # (Auto) 0.4 Baso # (Auto) 0.1 Sodium 130 L Potassium 4.0 Chloride 103 Carbon Dioxide 14 L Anion Gap 18 BUN 13 Creatinine 0.7 L Est GFR ( Amer) > 60 Est GFR (Non-Af Amer) > 60 POC Glucose (mg/dL) Random Glucose 315 H D Calcium 7.6 L Phosphorus 2.6 Magnesium 1.8 Total Bilirubin 0.3 AST 15 L ALT 19 L D Alkaline Phosphatase 89 Total Protein 5.5 L Albumin 3.4 L Globulin 2.2 Albumin/Globulin Ratio 1.6 Triglycerides 776 H Cholesterol 184 LDL Cholesterol Direct 67 HDL Cholesterol 26 L TSH 3rd Generation 0.65 Urine Opiates Screen Negative Urine Methadone Screen Negative Ur Barbiturates Screen Negative Ur Phencyclidine Scrn Negative Ur Amphetamines Screen Negative U Benzodiazepines Scrn Negative U Oth Cocaine Metabols Negative U Cannabinoids Screen Negative 09/25/18 06:06 WBC RBC Hgb Hct MCV MCH MCHC RDW Plt Count MPV Neut % (Auto) Lymph % (Auto) [place] % (Auto) Eos % (Auto) Baso % (Auto) Neut # (Auto) Lymph # (Auto) [place] # (Auto) Eos # (Auto) Baso # (Auto) Sodium 131 L Potassium 4.0 Chloride 104 Carbon Dioxide 12 L Anion Gap 19 BUN 12 Creatinine 0.6 L Est GFR ( Amer) > 60 Est GFR (Non-Af Amer) > 60 POC Glucose (mg/dL) Random Glucose 301 H Calcium 8.1 L Phosphorus 2.1 L Magnesium Total Bilirubin AST ALT Alkaline Phosphatase Total Protein Albumin Globulin Albumin/Globulin Ratio Triglycerides Cholesterol LDL Cholesterol Direct HDL Cholesterol TSH 3rd Generation Urine Opiates Screen Urine Methadone Screen Ur Barbiturates Screen Ur Phencyclidine Scrn Ur Amphetamines Screen U Benzodiazepines Scrn U Oth Cocaine Metabols U Cannabinoids Screen Critical Care Progress Note - Nutrition Nutrition: Nutrition Category Date Time Status Heart Healthy Diet [DIET] Diets 09/24/18 Lunch Active Assessment/Plan - Assessment and Plan (Free Text) Plan: Patient admitted for DKA Anion gap closed -switched to subQ insulin -Patient will benefit from diabetes nurse education and learning how to measure and self medicate with insulin based on blood sugar. -Patient remains hemodynamically stable. - Date & Time Date: 09/25/18 Time: 19:48
--- NOTE | 2018-09-25 12:09 | CARD ---
APPROVED REPORT Date of service: 09/24/2018 EKG Measurement Heart [id number] <Conclusion> Sinus bradycardia Otherwise normal ECG
[2018-09-25 13:36] VITALS: BP 138/81; PULSE 67; TEMP 97.6; O2SAT 98
--- NOTE | 2018-09-25 16:59 | CP.PCM.PCO ---
Physician Communication Note - Physician Communication Note Physician Communication Note: Patient left against medical advice
--- NOTE | 2018-09-25 20:52 | PN ---
DATE: 09/25/2018 ENDOCRINOLOGY FOLLOWUP NOTE LOCATION: ICU, Room 12. SUBJECTIVE: This is a 38-year-old male with recent uncontrolled type 1 insulin-dependent diabetes, presenting here with marked hyperglycemic accelerations and metabolic acidosis and has had variable management of his recent hyperglycemic accelerations and persistent metabolic acidosis till the present time. LABORATORY DATA: The latest chemistries today showed a BUN of 12, sodium 131, potassium 4, chloride 104, CO2 is 12, indicative of persistent metabolic acidosis. Creatinine is 0.6 and glucose is 301. ASSESSMENT: This is a 38-year-old male with recent uncontrolled type 1 insulin-dependent diabetes with persistent diabetic ketoacidosis and dehydration related to a subtherapeutic insulin regimen and subtherapeutic IV hydration as given. The patient is with diabetic ketoacidosis, volume deficits of 12 to 15 liters on admission and should be receiving appropriate vigorous IV hydration accordingly. Moreover because of developing insulin deficiency, the patient has marked glucose toxicity because of the relative insulin deficiency as mentioned and would require intensive insulin therapy with insulin drip infusion on admission till the metabolic acidosis is resolved to at least a CO2 of 18- 20 before the discontinuation of the aforementioned. PLAN OF MANAGEMENT: Would highly recommend continuing and resuming the vigorous IV hydration until the acidosis has resolved. We will increase the normal saline now back to 150 mL per hour and repeat the chemistries accordingly. We will also hold off the resumption of the basal and bolus insulin regimen as ordered until the metabolic acidosis has resolved to a CO2 of above 18, as giving the patient the aforementioned basal and bolus insulin drug combination will only delay the resolution of the metabolic acidosis accordingly. The patient needs intensive insulin therapy with insulin drip infusion even if we have to go to the algorithm 2 or 3 to resolve the acidosis accordingly with the DKA protocol as given. We will follow. Lyssa Perez MD
[2018-09-26] MEDS ORDERED: Pneumococcal 23-Valent Vaccine IM ONE (10:00)
[2018-09-26 12:17] LABS: C-PEPTIDE 0.5 ng/mL (0.80-3.85)
== END 2018-09-25 16:30 | disposition left against medical advice (07) | DRG 294 ==
LOC: C.ER 21:18 → C.9E 23:10 → C.3T 09-24 00:39 → C.9I 09-24 10:14
PROVIDERS: ADMIT Internal Medicine Nephrology; ATTEND Internal Medicine Nephrology
DX: E10.10 Type 1 diabetes mellitus with ketoacidosis without coma (principal); E86.0 Dehydration; E87.1 Hypo-osmolality and hyponatremia; F25.9 Schizoaffective disorder, unspecified; F31.9 Bipolar disorder, unspecified; F17.210 Nicotine dependence, cigarettes, uncomplicated; Z79.4 Long term (current) use of insulin; Z83.3 Family history of diabetes mellitus